=== PATIENT | female | born 1945 | race Caucasian/White ===

== ENCOUNTER 2016-06-06 06:38 | Emergency (ER) | payer MEDICARE, OTHER ==
[2016-06-06] MEDS ORDERED: Acetaminophen/HYDROcodone 325-5 MG Tab PO ONE (07:19)
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
[2016-06-06 08:38] VITALS: BP 156/54
--- NOTE | 2016-06-08 08:33 | CR ---
Chest: Two views of the chest were obtained. Comparison: Previous chest x-ray of 10/12/12. Heart size and mediastinum are within normal limits. Lungs are clear. Bony structures are unremarkable for the patient's age. Impression: 1. Nothing acute is seen on two-view chest x-ray. Diagnostic code #1
== END 2016-06-06 08:32 | disposition home or self-care (01) ==
LOC: JD.ED 06:38
DX: S20.20XA Contusion of thorax, unspecified, initial encounter (principal); I10 Essential (primary) hypertension; J44.9 Chronic obstructive pulmonary disease, unspecified; E11.9 Type 2 diabetes mellitus without complications; E66.9 Obesity, unspecified; Z85.3 Personal history of malignant neoplasm of breast; Z98.49 Cataract extraction status, unspecified eye; Z90.49 Acquired absence of other specified parts of digestive tract; Z90.11 Acquired absence of right breast and nipple; F17.210 Nicotine dependence, cigarettes, uncomplicated; Z68.30 Body mass index [BMI] 30.0-30.9, adult; Z79.84 Long term (current) use of oral hypoglycemic drugs; Z79.899 Other long term (current) drug therapy; Z88.0 Allergy status to penicillin; Z88.2 Allergy status to sulfonamides; Z88.1 Allergy status to other antibiotic agents; Z79.82 Long term (current) use of aspirin; W17.89XA Other fall from one level to another, initial encounter
CPT/HCPCS: 71020; 99283; A9270; 99284

== ENCOUNTER 2016-10-21 12:15 | Observation (INO) | payer MEDICARE, OTHER ==
[2016-10-21] MEDS ORDERED: LORazepam 2 MG/ML MDV IVPUSH PRN (13:11)
[2016-10-21] MEDS ORDERED: hydrALAZINE 20 MG/ML SDV IVPUSH PRN (13:11)
[2016-10-21] MEDS ORDERED: Ondansetron 4 MG/2 ML SDV IV PRN (13:11)
[2016-10-21] MEDS ORDERED: Promethazine 12.5 MG in Sodium Chloride 0.9% 50 ML IV PRN (13:11)
[2016-10-21] MEDS ORDERED: Albuterol/Ipratropium 3.0-0.5 MG/3 ML Neb Soln NEB PRN (13:11)
[2016-10-21] MEDS ORDERED: LORazepam 2 MG/ML MDV IV PRN (13:11)
[2016-10-21] MEDS ORDERED: HYDROmorphone 0.5 MG/0.5 ML Syringe IVPUSH PRN (13:11)
[2016-10-21] MEDS ORDERED: Acetaminophen/HYDROcodone 325-5 MG Tab PO PRN (13:11)
[2016-10-21] MEDS ORDERED: Metoprolol Tartrate 5 MG/5 ML SDV IVPUSH PRN (13:11)
[2016-10-21] MEDS ORDERED: Acetaminophen 325 MG Tab PO PRN (13:11)
--- NOTE | 2016-10-21 13:11 | PCM.HP ---
H&P History of Present Illness - General Date of Service: 10/21/16 Admit Problem/Dx: Hyperglycemia with DM2 Source of Information: Patient, Family, Manager Registration, Old Records, Provider, RN Notes Reviewed, Significant Other History Limitations: Reports: No Limitations - History of Present Illness Initial Comments - Free Text/Narative: This is a 70 yo elderly white female with past medial hx/o Cataract, Glaucoma, HTN, COPD, Hx/o Renal Stones, DM2, and Obesity with BMI 30+ who comes in as direct admit from the clinic due to hyperlycemia. She was initially seen at her PCP's office this morning and was found to have a BS level of 396. Her symptom is associated with diarrhea. Per patient, she woke up this morning with a BS level of 469. She immediately took 2 tabs of 1,000 mg by mouth of Metformin to improve her level before she went and got seen at [facility]. Patient has been having some issues controlling with her sugar. She has been on metformin 2000 mg by mouth twice a day daily for over 2 years now. She reports diarrhea 6-8 times a day while on metformin. Her PCP felt diarrhea was not related to Metformin. Patient took upon herself to stop taking Metformin on her own. Six weeks ago, she saw Dr. Wei and at that time patient she was continued on Januvia and Glipizide but Metformin. She was started on Invokana 3 weeks ago. However she felt this new drug was causing her sugar to up. According to patient her last A1C was 6.6 (past 2-3 months). Her initial workup in the clinic shows a CBC remarkable for WBCs of 12.9 and neutrophil absolute count of 10.1. Her chemistry is remarkable for glucose of 396, BUN of 33, creatinine of 1.90, chloride of 94, CO2 31, and AST of 13. Patient is being admitted for medical management of hyperglycemia associated with DMS. She is full code. - Related Data Allergies/Adverse Reactions: Allergies Allergy/AdvReac Type Severity Reaction Status Date / Time Penicillins Allergy Hives Verified 06/06/16 06:52 brimonidine [From Alphagan P] AdvReac Vision loss Verified 10/21/16 13:40 sulfamethoxazole AdvReac Headache Verified 10/21/16 13:40 [From Septra] trimethoprim [From Novra] AdvReac Headache Verified 10/21/16 13:40 Home Medications: Home Meds Aspirin [Halfprin] 81 mg PO BID 06/06/16 [History] Brinzolamide [Azopt] 1 drop EYERT BID 06/06/16 [History] Calcium Carbonate/Vitamin D3 [Calcium 500 + Vit D 400] 2 tab PO DAILY 06/06/16 [ History] Cinnamon Bark [Cinnamon] 2,000 mg PO BID 06/06/16 [History] Furosemide 60 mg PO DAILY 06/06/16 [History] Lisinopril 10 mg PO DAILY 06/06/16 [History] [place]-3S/DHA/Epa/Fish Oil/D3 [Fish Oil + D3 Softgel] 1 each PO DAILY 06/06/16 [ History] Simvastatin [Zocor] 20 mg PO DAILY 06/06/16 [History] SitaGLIPtin [Januvia] 100 mg PO DAILY 06/06/16 [History] Timolol Maleate [Timoptic 0.5% Ophth Soln] 1 drop EYERT BID 06/06/16 [History] Travoprost [Travatan Z] 1 drop EYEBOTH BEDTIME 06/06/16 [History] Past Medical History HEENT History: Reports: Cataract, Glaucoma Cardiovascular History: Reports: Hypertension Respiratory History: Reports: COPD Gastrointestinal History: Reports: Chronic Diarrhea Genitourinary History: Reports: Renal Calculus Endocrine/Metabolic History: Reports: Diabetes, Type II, Obesity/BMI 30+ Oncologic (Cancer) History: Reports: Breast (right, 2006, S/P mastectomy & CTx) Other Oncologic History: 2006 - Past Surgical History HEENT Surgical History: Reports: Cataract Surgery, Oral Surgery Social & Family History - Family History Family Medical History: Noncontributory - Tobacco Use Smoking Status *Q: Current Every Day Smoker Years of Tobacco use: 54 Packs/Tins Daily: 1.5 Used Tobacco, but Quit: No Second Hand Smoke Exposure: Yes - Caffeine Use Caffeine Use: Reports: Coffee - Recreational Drug Use Recreational Drug Use: No - Living Situation & Occupation Living situation: Reports: , with Spouse Occupation: Retired H&P Review of Systems - Review of Systems: Review Of Systems: See Below General: Denies: Fever, Chills, Malaise, Weakness, Fatigue, Night Sweats HEENT: Reports: No Symptoms Pulmonary: Denies: Shortness of Breath Cardiovascular: Denies: Palpitations, Dyspnea on Exertion Gastrointestinal: Reports: Diarrhea. Denies: Abdominal Pain, Nausea, Vomiting Genitourinary: Reports: Frequency. Denies: Burning, Pain, Incontinence Musculoskeletal: Reports: No Symptoms Skin: Denies: Cyanosis, Rash, Erythema Psychiatric: Denies: Depression, Agitation, Hallucinations, Suicidal Ideation, Homicidal Ideation Neurological: Denies: Confusion, Difficulty Walking, Weakness, Gait Disturbance Hematologic/Lymphatic: Reports: No Symptoms Immunologic: Reports: No Symptoms Exam - Exam Exam: See Below - Vital Signs Vital Signs: Last Vital Signs Temp 36.5 C 10/21/16 12:27 Pulse 86 10/21/16 12:27 Resp 14 10/21/16 12:27 BP 129/57 L 10/21/16 12:27 Pulse Ox 96 10/21/16 12:27 Weight: 83.597 kg - Exam General: Alert, Oriented, Cooperative, Mild Distress, Moderate Distress HEENT: Conjunctiva Clear, EACs Clear, EOMI, Hearing Intact, Mucosa Moist & Roundup , Nares Patent, Normal Nasal Septum, Posterior Pharynx Clear, Pupils Equal, Pupils Reactive, TMs Clear Neck: Supple, Trachea Midline, +2 Carotid Pulse wo Bruit, Full Range of Motion. No: JVD Lungs: Clear to Auscultation, Normal Respiratory Effort Cardiovascular: Regular Rate, Regular Rhythm GI/Abdominal Exam: Normal Bowel Sounds, Soft, Non-Tender, No Organomegaly, No Distention, No Abnormal Bruit, No Mass, Pelvis Stable (Female) Exam: Deferred Rectal (Female) Exam: Deferred Back Exam: Normal Inspection, Decreased Range of Motion Extremities: Normal Inspection, Normal Range of Motion, Non-Tender, No Pedal Edema, Normal Capillary Refill Peripheral Pulses: 2+: Posterior Tibial (L), Posterior Tibial (R), Dorsalis Pedis (L), Dorsalis Pedis (R) Skin: Warm, Dry, Intact Neuro Extensive - Mental Status: Oriented x3, Normal Cognition, Memory Intact Neuro Extensive - Motor, Sensory, Reflexes: CN II-XII Intact, Normal Gait Psychiatric: Alert, Normal Affect, Normal Mood *Q Meaningful Use (ADM) - VTE *Q VTE Criteria *Q: - Stroke *Q Stroke Criteria *Q: - AMI *Q AMI Criteria *Q: Problem List Initiated/Reviewed/Updated: Yes Orders Last 24hrs: Active Orders 24 hr Category Date Time Status ABG [BLOOD GAS ARTERIAL] [BG] Urgent Lab 10/21/16 12:41 Ordered UA W/MICROSCOPIC [URIN] Routine Lab 10/21/16 12:41 Uncollected Assessment/Plan Comment:: Assessment/Plan: Acute: Hyperglycemia with DM2 - She is on Januvia, Glipizide and Invokana - Unsure if she is compliant - Recent A1c per patient is 6.6 (1-2 diabetic medications should be enough to control her sugar) - Will check A1C, Accu-check QID, ISS - Glipizide 5 mg po BID and +/- Invokana - She thinks SGLT2 is causing her sugar to go up Dehydration - Patient takes Lasix - She is also on Invokana (also a diuretic pill) - Will hydrate her Metformin Induced Diarrhea - D/c Metformin - No unusual diet or drink, no recent abx use - Defer C. diff test - Fecal Lactoferrin and WBC to r/o infectious cause - IV Hydration and Monitor E-lytes Chronic: Impaired Vision HTN COPD Obesity Plan: Admit to OBS Resume Home Meds Routine AM Labs Diabetic Education Goal: to keep her on 2 oral anti-hypoglycemic drugs only SW/CM for d/c planning Code status: 1 Possible d/c in 1-2 days
[2016-10-21] MEDS ORDERED: Bisacodyl 5 MG Tab PO PRN (13:24)
[2016-10-21] MEDS ORDERED: Sodium Chloride 0.9% 500 ML IV ONE (13:39)
[2016-10-21] MEDS ORDERED: Nicotine 21 MG/24 Hr Patch TRDERM ONE (14:13)
[2016-10-21] MEDS: Nicotine 21 MG/24 Hr Patch TRDERM SCH (15:01)
[2016-10-21] MEDS: Sodium Chloride 0.9% 1,000 ML IV SCH ×2 (15:06→18:28)
[2016-10-21] MEDS ORDERED: 50% Dextrose in Water 50 ML Syringe IVPUSH PRN (15:09)
[2016-10-21] MEDS: Insulin Aspart 100 Units/ML 3 ML Pen SUBCUT SCH ×2 (17:47→21:11)
[2016-10-21] MEDS: Simvastatin 20 MG Tab*PT OWN MED PO SCH (21:07)
[2016-10-21] MEDS: Aspirin 81 MG Tab.EC PO SCH (21:07)
[2016-10-21] MEDS: glipiZIDE 5 MG Tab.ER PO SCH (21:07)
[2016-10-21] MEDS: Famotidine 20 MG Tab PO SCH (21:07)
[2016-10-21] MEDS: Temazepam 15 MG Cap PO PRN (22:15)
[2016-10-22] MEDS: Insulin Aspart 100 Units/ML 3 ML Pen SUBCUT SCH ×4 (06:03→22:21)
[2016-10-22] MEDS: glipiZIDE 5 MG Tab.ER PO SCH ×2 (10:32→20:48)
[2016-10-22] MEDS: Famotidine 20 MG Tab PO SCH (10:32)
[2016-10-22] MEDS: Sodium Chloride 0.9% 1,000 ML IV SCH ×2 (11:55→20:51)
[2016-10-22] MEDS ORDERED: Magnesium Sulfate/Water 2 GM in Premix Bag 1 BAG IV ONE (12:59)
--- NOTE | 2016-10-22 12:59 | PCM.PN ---
- General Info Date of Service: 10/22/16 Functional Status: Reports: Tolerating Diet, Ambulating, Urinating - Review of Systems General: Reports: No Symptoms HEENT: Reports: No Symptoms Pulmonary: Reports: No Symptoms Cardiovascular: Reports: No Symptoms Gastrointestinal: Reports: Diarrhea Genitourinary: Reports: No Symptoms Musculoskeletal: Reports: No Symptoms Skin: Reports: No Symptoms Neurological: Reports: No Symptoms - Patient Data Vitals - Most Recent: Last Vital Signs Temp 36.7 C 10/22/16 12:27 Pulse 94 10/22/16 12:27 Resp 16 10/22/16 12:27 BP 150/72 H 10/22/16 12:27 Pulse Ox 100 10/22/16 12:27 Weight - Most Recent: 84.958 kg I&O - Last 24 Hours: Intake & Output 10/21/16 10/22/16 10/22/16 22:59 06:59 14:59 Intake Total 1023 2112 120 Output Total 500 Balance 1023 1612 120 Lab Results Last 24 Hours: Laboratory Results - last 24 hr 10/21/16 10/21/16 10/21/16 Range/Units 12:41 14:45 14:45 WBC (3.98-10.04) K/mm3 RBC (3.98-5.22) M/mm3 Hgb (11.2-15.7) gm/L Hct (34.1-44.9) % MCV (79.4-94.8) fl MCH (25.6-32.2) pg MCHC (32.2-35.5) g/dl RDW Std Deviation (36.4-46.3) fL Plt Count (182-369) K/mm3 MPV (9.4-12.3) fl Puncture Site Lt radial ABG pH 7.42 (7.35-7.45) ABG pCO2 43.8 (35.0-45.0) mmHg ABG pO2 65.0 L (80.0-100.0) mmHg ABG HCO3 27.8 H (22.0-26.0) meq/L ABG O2 Saturation 94.6 L (96.0-97.0) % ABG Base Excess 3.3 H (-2-2.0) Von Test Positive A-a Gradient 14 mmHg O2 Delivery Device Room air Oxygen Flow Rate 0.0 FiO2 0.00 L (21.00-100.00) % Sodium (136-145) mEq/L Potassium (3.5-5.1) mEq/L Chloride (98-107) mEq/L Carbon Dioxide (21-32) mEq/L Anion Gap (5-15) BUN (7-18) mg/dL Creatinine (0.55-1.02) mg/dL Est Cr Clr Drug Dosing mL/min Estimated GFR (MDRD) (>60) mL/min BUN/Creatinine Ratio (14-18) Glucose (80-115) mg/dL POC Glucose (80-115) mg/dL Hemoglobin A1c 8.30 H (4.50-6.20) % Calcium (8.5-10.1) mg/dL Magnesium (1.8-2.4) mg/dl C-Reactive Protein 0.2 (<1.0) mg/dL Free T4 1.29 (0.76-1.46) ng/dL TSH 3rd Generation 0.905 (0.358-3.74) uIU/mL Urine Color (Yellow) Urine Appearance (Clear) Urine pH (5.0-8.0) Ur Specific [place] (1.005-1.030) Urine Protein (Negative) Urine Glucose (UA) (Negative) Urine Ketones (Negative) Urine Occult Blood (Negative) Urine Nitrite (Negative) Urine Bilirubin (Negative) Urine Urobilinogen (0.2-1.0) Ur Leukocyte Esterase (Negative) Urine RBC (0-5) /hpf Urine WBC (0-5) /hpf Urine WBC Clumps (NOT SEEN) /hpf Ur Epithelial Cells (0-5) /hpf Urine Bacteria (FEW) /hpf Urine Mucus (FEW) /hpf Ur Random Creatinine (30.0-125.0) mg/dL Ur Random Microalbumin (1.3-20.0) mg/L Microalb/Creat Ratio (0-30) mg/g 10/21/16 10/21/16 10/21/16 Range/Units 16:45 19:00 19:00 WBC (3.98-10.04) K/mm3 RBC (3.98-5.22) M/mm3 Hgb (11.2-15.7) gm/L Hct (34.1-44.9) % MCV (79.4-94.8) fl MCH (25.6-32.2) pg MCHC (32.2-35.5) g/dl RDW Std Deviation (36.4-46.3) fL Plt Count (182-369) K/mm3 MPV (9.4-12.3) fl Puncture Site ABG pH (7.35-7.45) ABG pCO2 (35.0-45.0) mmHg ABG pO2 (80.0-100.0) mmHg ABG HCO3 (22.0-26.0) meq/L ABG O2 Saturation (96.0-97.0) % ABG Base Excess (-2-2.0) Von Test A-a Gradient mmHg O2 Delivery Device Oxygen Flow Rate FiO2 (21.00-100.00) % Sodium (136-145) mEq/L Potassium (3.5-5.1) mEq/L Chloride (98-107) mEq/L Carbon Dioxide (21-32) mEq/L Anion Gap (5-15) BUN (7-18) mg/dL Creatinine (0.55-1.02) mg/dL Est Cr Clr Drug Dosing mL/min Estimated GFR (MDRD) (>60) mL/min BUN/Creatinine Ratio (14-18) Glucose (80-115) mg/dL POC Glucose 347 H (80-115) mg/dL Hemoglobin A1c (4.50-6.20) % Calcium (8.5-10.1) mg/dL Magnesium (1.8-2.4) mg/dl C-Reactive Protein (<1.0) mg/dL Free T4 (0.76-1.46) ng/dL TSH 3rd Generation (0.358-3.74) uIU/mL Urine Color Yellow (Yellow) Urine Appearance Clear (Clear) Urine pH 5.5 (5.0-8.0) Ur Specific [place] 1.015 (1.005-1.030) Urine Protein Negative (Negative) Urine Glucose (UA) 3+ H (Negative) Urine Ketones Negative (Negative) Urine Occult Blood Negative (Negative) Urine Nitrite Negative (Negative) Urine Bilirubin Negative (Negative) Urine Urobilinogen 0.2 (0.2-1.0) Ur Leukocyte Esterase Trace H (Negative) Urine RBC 0-5 (0-5) /hpf Urine WBC 5-10 H (0-5) /hpf Urine WBC Clumps Rare (NOT SEEN) /hpf Ur Epithelial Cells 0-5 (0-5) /hpf Urine Bacteria Few (FEW) /hpf Urine Mucus Moderate H (FEW) /hpf Ur Random Creatinine 69.1 (30.0-125.0) mg/dL Ur Random Microalbumin 29.5 H (1.3-20.0) mg/L Microalb/Creat Ratio 42.6 H (0-30) mg/g 10/21/16 10/22/16 10/22/16 Range/Units 21:06 06:01 06:30 WBC 8.76 (3.98-10.04) K/mm3 RBC 3.33 L (3.98-5.22) M/mm3 Hgb 10.8 L (11.2-15.7) gm/L Hct 31.8 L (34.1-44.9) % MCV 95.5 H (79.4-94.8) fl MCH 32.4 H (25.6-32.2) pg MCHC 34.0 (32.2-35.5) g/dl RDW Std Deviation 44.4 (36.4-46.3) fL Plt Count 266 (182-369) K/mm3 MPV 10.5 (9.4-12.3) fl Puncture Site ABG pH (7.35-7.45) ABG pCO2 (35.0-45.0) mmHg ABG pO2 (80.0-100.0) mmHg ABG HCO3 (22.0-26.0) meq/L ABG O2 Saturation (96.0-97.0) % ABG Base Excess (-2-2.0) Von Test A-a Gradient mmHg O2 Delivery Device Oxygen Flow Rate FiO2 (21.00-100.00) % Sodium (136-145) mEq/L Potassium (3.5-5.1) mEq/L Chloride (98-107) mEq/L Carbon Dioxide (21-32) mEq/L Anion Gap (5-15) BUN (7-18) mg/dL Creatinine (0.55-1.02) mg/dL Est Cr Clr Drug Dosing mL/min Estimated GFR (MDRD) (>60) mL/min BUN/Creatinine Ratio (14-18) Glucose (80-115) mg/dL POC Glucose 176 H 166 H (80-115) mg/dL Hemoglobin A1c (4.50-6.20) % Calcium (8.5-10.1) mg/dL Magnesium (1.8-2.4) mg/dl C-Reactive Protein (<1.0) mg/dL Free T4 (0.76-1.46) ng/dL TSH 3rd Generation (0.358-3.74) uIU/mL Urine Color (Yellow) Urine Appearance (Clear) Urine pH (5.0-8.0) Ur Specific [place] (1.005-1.030) Urine Protein (Negative) Urine Glucose (UA) (Negative) Urine Ketones (Negative) Urine Occult Blood (Negative) Urine Nitrite (Negative) Urine Bilirubin (Negative) Urine Urobilinogen (0.2-1.0) Ur Leukocyte Esterase (Negative) Urine RBC (0-5) /hpf Urine WBC (0-5) /hpf Urine WBC Clumps (NOT SEEN) /hpf Ur Epithelial Cells (0-5) /hpf Urine Bacteria (FEW) /hpf Urine Mucus (FEW) /hpf Ur Random Creatinine (30.0-125.0) mg/dL Ur Random Microalbumin (1.3-20.0) mg/L Microalb/Creat Ratio (0-30) mg/g 10/22/16 10/22/16 Range/Units 06:30 11:10 WBC (3.98-10.04) K/mm3 RBC (3.98-5.22) M/mm3 Hgb (11.2-15.7) gm/L Hct (34.1-44.9) % MCV (79.4-94.8) fl MCH (25.6-32.2) pg MCHC (32.2-35.5) g/dl RDW Std Deviation (36.4-46.3) fL Plt Count (182-369) K/mm3 MPV (9.4-12.3) fl Puncture Site ABG pH (7.35-7.45) ABG pCO2 (35.0-45.0) mmHg ABG pO2 (80.0-100.0) mmHg ABG HCO3 (22.0-26.0) meq/L ABG O2 Saturation (96.0-97.0) % ABG Base Excess (-2-2.0) Von Test A-a Gradient mmHg O2 Delivery Device Oxygen Flow Rate FiO2 (21.00-100.00) % Sodium 139 (136-145) mEq/L Potassium 3.0 L (3.5-5.1) mEq/L Chloride 105 (98-107) mEq/L Carbon Dioxide 27 (21-32) mEq/L Anion Gap 10.0 (5-15) BUN 29 H (7-18) mg/dL Creatinine 1.7 H (0.55-1.02) mg/dL Est Cr Clr Drug Dosing 24.70 mL/min Estimated GFR (MDRD) 30 (>60) mL/min BUN/Creatinine Ratio 17.1 (14-18) Glucose 167 H (80-115) mg/dL POC Glucose 304 H (80-115) mg/dL Hemoglobin A1c (4.50-6.20) % Calcium 8.7 (8.5-10.1) mg/dL Magnesium 1.6 L (1.8-2.4) mg/dl C-Reactive Protein (<1.0) mg/dL Free T4 (0.76-1.46) ng/dL TSH 3rd Generation (0.358-3.74) uIU/mL Urine Color (Yellow) Urine Appearance (Clear) Urine pH (5.0-8.0) Ur Specific [place] (1.005-1.030) Urine Protein (Negative) Urine Glucose (UA) (Negative) Urine Ketones (Negative) Urine Occult Blood (Negative) Urine Nitrite (Negative) Urine Bilirubin (Negative) Urine Urobilinogen (0.2-1.0) Ur Leukocyte Esterase (Negative) Urine RBC (0-5) /hpf Urine WBC (0-5) /hpf Urine WBC Clumps (NOT SEEN) /hpf Ur Epithelial Cells (0-5) /hpf Urine Bacteria (FEW) /hpf Urine Mucus (FEW) /hpf Ur Random Creatinine (30.0-125.0) mg/dL Ur Random Microalbumin (1.3-20.0) mg/L Microalb/Creat Ratio (0-30) mg/g Isma Results Last 24 Hours: Microbiology 10/21/16 13:38 Stool for WBCs - Final Stool / Feces NO WBC SEEN Med Orders - Current: Current Medications Acetaminophen (Tylenol) 650 mg PO Q4H PRN PRN Reason: Pain (Mild 1-3)/fever Hydrocodone Bitart/Acetaminophen ([place] 325-5 Mg) 1 tab PO Q4H PRN PRN Reason: Pain (moderate 4-6) Albuterol/Ipratropium (Duoneb 3.0-0.5 Mg/3 Ml) 3 ml NEB Q4H PRN PRN Reason: Shortness Of Breath/wheezing Bisacodyl (Dulcolax) 5 mg PO DAILY PRN PRN Reason: Constipation Dextrose/Water (Dextrose 50% In Water) 50 ml IVPUSH ASDIRECTED PRN PRN Reason: Hypoglycemia Famotidine (Pepcid) 20 mg PO DAILY [facility] Glipizide (Glucotrol Xl) 5 mg PO BID [facility] Last Admin: 10/22/16 10:32 Dose: 5 mg Hydralazine HCl (Apresoline) 20 mg IVPUSH Q4H PRN PRN Reason: Hypertension Hydromorphone HCl (Dilaudid) 0.25 mg IVPUSH Q2H PRN PRN Reason: Pain (severe 7-10) Promethazine HCl 12.5 mg/ (Sodium Chloride) 50.5 mls @ 100 mls/hr IV Q6H PRN PRN Reason: Nausea/Vomiting Sodium Chloride (Normal Saline) 1,000 mls @ 125 mls/hr IV ASDIRECTED [facility] Last Admin: 10/22/16 11:55 Dose: 125 mls/hr Insulin Aspart (Novolog) 0 unit SUBCUT QIDACANDBED [facility] PRN Reason: Protocol Last Admin: 10/22/16 11:52 Dose: 4 units Lorazepam (Ativan) 2 mg IVPUSH Q4H PRN PRN Reason: Seizures Lorazepam (Ativan) 1 mg IV Q6H PRN PRN Reason: Anxiety Metoprolol Tartrate (Lopressor) 5 mg IVPUSH Q4H PRN PRN Reason: Tachycardia Miscellaneous Information (Remove Patch) 0 ea TRDERM Q24H [facility] Nicotine (Habitrol) 21 mg TRDERM Q24H [facility] Last Admin: 10/21/16 15:01 Dose: 21 mg (Travoprost [ Travatan Z] 1 Drop)* Pt Own Med* 1 drop EYEBOTH BEDTIME [facility] Last Admin: 10/21/16 21:08 Dose: 1 drop Ondansetron HCl (Zofran) 4 mg IV Q6H PRN PRN Reason: Nausea/Vomiting (Brinzolamide 1% Opthalmic)*Pt Own Med* 0 each EYERT BID [facility] Last Admin: 10/22/16 10:34 Dose: 1 each (Timolol Maleate 0. (25% )*Pt Own Supply*) 0 each EYERT BID [facility] Last Admin: 10/22/16 10:35 Dose: 1 each Aspirin 81 Mg Tab.Ec 0 each PO BID [facility] Last Admin: 10/22/16 10:35 Dose: 81 each Simvastatin (Zocor) 20 mg PO BEDTIME [facility] Last Admin: 10/21/16 21:07 Dose: 20 mg Temazepam (Restoril) 15 mg PO BEDTIME PRN PRN Reason: Sleep Last Admin: 10/21/16 22:15 Dose: 15 mg Discontinued Medications Aspirin (Halfprin) 81 mg PO BID [facility] Last Admin: 10/21/16 21:07 Dose: 81 mg Famotidine (Pepcid) 20 mg PO BID [facility] Last Admin: 10/22/16 10:32 Dose: 20 mg Sodium Chloride (Normal Saline) 500 mls @ 999 mls/hr IV .BOLUS ONE Stop: 10/21/16 14:09 Last Admin: 10/21/16 14:33 Dose: 999 mls/hr Nicotine (Habitrol) 21 mg TRDERM ONETIME ONE Stop: 10/21/16 14:14 Last Admin: 10/21/16 16:50 Dose: Not Given (Brinzolamide 1% Opthalmic)*Pt Own Med* 1 drop EYERT BID [facility] Last Admin: 10/21/16 21:09 Dose: 1 drop Non-Formulary Medication ([place]-3s/Dha/Epa/Fish Oil/D3 [Fish Oil-Vit D3 Softgel] ) 1 each PO DAILY [facility] (Timolol Maleate 0. (25% )*Pt Own Supply*) 1 drop EYERT BID [facility] Last Admin: 10/21/16 21:08 Dose: 1 drop - Exam Quality Assessment: DVT Prophylaxis General: Alert, Oriented, Cooperative, No Acute Distress HEENT: Pupils Equal, Pupils Reactive, EOMI Neck: Supple, Trachea Midline Lungs: Normal Respiratory Effort Cardiovascular: Regular Rate, Regular Rhythm GI/Abdominal Exam: Normal Bowel Sounds, Soft, Non-Tender, No Organomegaly, No Distention (Female) Exam: Deferred Back Exam: Normal Inspection Extremities: Normal Inspection, No Pedal Edema Skin: Warm Neurological: No New Focal Deficit Psy/Mental Status: Alert, Normal Affect, Normal Mood - Problem List & Annotations (1) COPD (chronic obstructive pulmonary disease) SNOMED Code(s): 31370872 Code(s): J44.9 - CHRONIC OBSTRUCTIVE PULMONARY DISEASE, UNSPECIFIED Status : Acute Current Visit: Yes (2) Hypertension SNOMED Code(s): 81208615 Code(s): I10 - ESSENTIAL (PRIMARY) HYPERTENSION Status: Acute Current Visit: Yes (3) Hyperlipidemia SNOMED Code(s): 58350677 Code(s): E78.5 - HYPERLIPIDEMIA, UNSPECIFIED Status: Acute Current Visit : Yes (4) Hyperglycemia due to type 2 diabetes mellitus SNOMED Code(s): 816945381417468, 093490735825657 Code(s): E11.65 - TYPE 2 DIABETES MELLITUS WITH HYPERGLYCEMIA Status: Acute Current Visit: Yes - Problem List Review Problem List Initiated/Reviewed/Updated: Yes - My Orders Last 24 Hours: My Active Orders 10/22/16 12:59 Magnesium Sulfate/Water [Magnesium Sulfate 2 GM in Water 50 ML] 2 gm Premix Bag 1 bag IV ONETIME 10/22/16 21:00 Potassium Chloride 40 meq PO BID - Plan Plan:: Assessment/Plan: Acute: Hyperglycemia with DM2 - She is on Januvia, Glipizide and Invokana - Unsure if she is compliant - Recent A1c per patient is 6.6 (1-2 diabetic medications should be enough to control her sugar) - Will check A1C, Accu-check QID, ISS - Glipizide 5 mg po BID and +/- Invokana - She thinks SGLT2 is causing her sugar to go up Dehydration - Patient takes Lasix - She is also on Invokana (also a diuretic pill) - Will hydrate her Metformin Induced Diarrhea - D/c Metformin - No unusual diet or drink, no recent abx use - Defer C. diff test - Fecal Lactoferrin and WBC to r/o infectious cause - IV Hydration and Monitor E-lytes Chronic: Impaired Vision HTN COPD Obesity Plan: Imodium Resume Home Meds Routine AM Labs Diabetic Education Goal: to keep her on 2 oral anti-hypoglycemic drugs only SW/CM for d/c planning Code status: 1 Possible d/c in 1-2 days
[2016-10-22] MEDS: Potassium Chloride 10% 20 MEQ/15 ML Soln 30 ML UD Cup PO SCH ×2 (13:51→20:48)
[2016-10-22] MEDS: Nicotine 21 MG/24 Hr Patch TRDERM SCH (13:51)
[2016-10-22] MEDS ORDERED: Loperamide 2 MG Cap PO ONE (14:40)
[2016-10-22] MEDS: Aspirin 81 MG Tab.EC PO SCH (14:53)
[2016-10-22] MEDS: Temazepam 15 MG Cap PO PRN (20:48)
[2016-10-22] MEDS: Simvastatin 20 MG Tab*PT OWN MED PO SCH (20:49)
[2016-10-23] MEDS: Insulin Aspart 100 Units/ML 3 ML Pen SUBCUT SCH ×2 (06:33→11:56)
[2016-10-23] MEDS: glipiZIDE 5 MG Tab.ER PO SCH (08:05)
[2016-10-23] MEDS: Potassium Chloride 10% 20 MEQ/15 ML Soln 30 ML UD Cup PO SCH (08:05)
[2016-10-23] MEDS ORDERED: Famotidine 20 MG Tab PO SCH (09:00)
[2016-10-23 12:50] VITALS: BP 153/65
--- NOTE | 2016-10-24 17:06 | PCM.DCSUM1 ---
Discharge Summary - Hospital Course Free Text/Narrative:: 70 yo female with past medial hx/o Cataract, Glaucoma, HTN, COPD, Hx/o Renal Stones, DM2, and Obesity with BMI 30+ who comes in as direct admit from the clinic due to hyperlycemia. She was initially seen at her PCP's office this morning and was found to have a BS level of 396. Her symptom is associated with diarrhea. Per patient, she woke up this morning with a BS level of 469. She immediately took 2 tabs of 1,000 mg by mouth of Metformin to improve her level before she went and got seen at [facility]. Patient has been having some issues controlling with her sugar. She has been on metformin 2000 mg by mouth twice a day daily for over 2 years now. She reports diarrhea 6-8 times a day while on metformin. Her PCP felt diarrhea was not related to Metformin. Patient took upon herself to stop taking Metformin on her own. Six weeks ago, she saw Dr. Wei and at that time patient she was continued on Januvia and Glipizide but Metformin. She was started on Invokana 3 weeks ago. However she felt this new drug was causing her sugar to up. According to patient her last A1C was 6.6 (past 2-3 months). Patient is being admitted for medical management of hyperglycemia associated with DMS. 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 - Discharge Data Discharge Date: 10/23/16 Discharge Disposition: Home, Self-Care 01 Condition: Good - Discharge Diagnosis/Problem(s) (1) COPD (chronic obstructive pulmonary disease) SNOMED Code(s): 02400797 ICD Code: J44.9 - CHRONIC OBSTRUCTIVE PULMONARY DISEASE, UNSPECIFIED Status : Acute (2) Hypertension SNOMED Code(s): 94350971 ICD Code: I10 - ESSENTIAL (PRIMARY) HYPERTENSION Status: Acute (3) Hyperlipidemia SNOMED Code(s): 90052476 ICD Code: E78.5 - HYPERLIPIDEMIA, UNSPECIFIED Status: Acute (4) Hyperglycemia due to type 2 diabetes mellitus SNOMED Code(s): 153542130206105, 922856693097211 ICD Code: E11.65 - TYPE 2 DIABETES MELLITUS WITH HYPERGLYCEMIA Status: Acute - Patient Summary/Data Consults: Consultations 10/21/16 13:34 Consult to Case Management [CONS] Routine Consult to Diabetic Nurse Specialist [CONS] Routine Consult to A Operator [CONS] Routine Consult to Video Editor [CONS] Routine Consult to Spiritual Care [CONS] Routine - Patient Instructions Diet: Usual Diet as Tolerated Activity: As Tolerated Driving: May Drive Today Showering/Bathing: May Shower Notify Provider of: Nausea and/or Vomiting Other/Special Instructions: pt refused to comment on any immunization questions - Discharge Plan Prescriptions/Med Rec: glipiZIDE [Glucotrol XL] 5 mg PO BID #60 tab.er Home Medications: Home Meds Aspirin [Halfprin] 81 mg PO BID 06/06/16 [History] Brinzolamide [Azopt] 1 drop EYERT BID 06/06/16 [History] Calcium Carbonate/Vitamin D3 [Calcium 500 + Vit D 400] 2 tab PO DAILY 06/06/16 [ History] Cinnamon Bark [Cinnamon] 2,000 mg PO BID 06/06/16 [History] Furosemide 60 mg PO DAILY 06/06/16 [History] Lisinopril 10 mg PO DAILY 06/06/16 [History] [place]-3S/DHA/Epa/Fish Oil/D3 [Fish Oil-Vit D3 Softgel] 1 each PO DAILY 06/06/16 [History] Simvastatin [Zocor] 20 mg PO DAILY 06/06/16 [History] SitaGLIPtin [Januvia] 100 mg PO DAILY 06/06/16 [History] Timolol Maleate [Timoptic 0.5% Ophth Soln] 1 drop EYERT BID 06/06/16 [History] Travoprost [Travatan Z] 1 drop EYEBOTH BEDTIME 06/06/16 [History] Albuterol/Ipratropium [DuoNeb 3.0-0.5 MG/3 ML] 2.5 mg INH QID PRN 10/21/16 [ History] glipiZIDE [Glucotrol XL] 5 mg PO BID #60 tab.er 10/23/16 [Rx] Patient Handouts: Smoking Cessation, Tips for Success, Ctad-qa-Aqms, Hyperglycemia, Fgbh-bz-Nnst, Blood Glucose Monitoring, Adult Referrals: Lei West MD [Primary Care Provider] - (Please see Dr. 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 Direct # is [phone] if you need to change time.) - Discharge Summary/Plan Comment DC Time >30 min.: No - General Info Date of Service: 10/21/16 Functional Status: Reports: Pain Controlled, Tolerating Diet, Ambulating, Urinating - Review of Systems General: Reports: No Symptoms HEENT: Reports: No Symptoms Pulmonary: Reports: No Symptoms Cardiovascular: Reports: No Symptoms Gastrointestinal: Reports: No Symptoms Genitourinary: Reports: No Symptoms Musculoskeletal: Reports: No Symptoms Skin: Reports: No Symptoms Neurological: Reports: No Symptoms Psychiatric: Reports: No Symptoms - Patient Data Vitals - Most Recent: Last Vital Signs Temp 36.4 C 10/23/16 12:31 Pulse 78 10/23/16 12:31 Resp 12 10/23/16 12:31 BP 153/65 H 10/23/16 12:31 Pulse Ox 91 L 10/23/16 14:00 Weight - Most Recent: 87.044 kg Med Orders - Current: Current Medications Discontinued Medications Acetaminophen (Tylenol) 650 mg PO Q4H PRN PRN Reason: Pain (Mild 1-3)/fever Hydrocodone Bitart/Acetaminophen ([place] 325-5 Mg) 1 tab PO Q4H PRN PRN Reason: Pain (moderate 4-6) Albuterol/Ipratropium (Duoneb 3.0-0.5 Mg/3 Ml) 3 ml NEB Q4H PRN PRN Reason: Shortness Of Breath/wheezing Aspirin (Halfprin) 81 mg PO BID [facility] Last Admin: 10/22/16 14:53 Dose: Not Given Bisacodyl (Dulcolax) 5 mg PO DAILY PRN PRN Reason: Constipation Dextrose/Water (Dextrose 50% In Water) 50 ml IVPUSH ASDIRECTED PRN PRN Reason: Hypoglycemia Famotidine (Pepcid) 20 mg PO BID [facility] Last Admin: 10/22/16 10:32 Dose: 20 mg Famotidine (Pepcid) 20 mg PO DAILY [facility] Last Admin: 10/23/16 08:05 Dose: 20 mg Glipizide (Glucotrol Xl) 5 mg PO BID [facility] Last Admin: 10/23/16 08:05 Dose: 5 mg Hydralazine HCl (Apresoline) 20 mg IVPUSH Q4H PRN PRN Reason: Hypertension Hydromorphone HCl (Dilaudid) 0.25 mg IVPUSH Q2H PRN PRN Reason: Pain (severe 7-10) Promethazine HCl 12.5 mg/ (Sodium Chloride) 50.5 mls @ 100 mls/hr IV Q6H PRN PRN Reason: Nausea/Vomiting Sodium Chloride (Normal Saline) 1,000 mls @ 125 mls/hr IV ASDIRECTED [facility] Last Admin: 10/22/16 20:51 Dose: 125 mls/hr Sodium Chloride (Normal Saline) 500 mls @ 999 mls/hr IV .BOLUS ONE Stop: 10/21/16 14:09 Last Admin: 10/21/16 14:33 Dose: 999 mls/hr Magnesium Sulfate 2 gm/ Premix 50 mls @ 25 mls/hr IV ONETIME ONE Stop: 10/22/16 14:58 Last Admin: 10/22/16 13:51 Dose: 25 mls/hr Insulin Aspart (Novolog) 0 unit SUBCUT QIDACANDBED [facility] PRN Reason: Protocol Last Admin: 10/23/16 11:56 Dose: 2 units Loperamide HCl (Imodium) 2 mg PO ONETIME ONE Stop: 10/22/16 14:41 Last Admin: 10/22/16 14:52 Dose: 2 mg Lorazepam (Ativan) 2 mg IVPUSH Q4H PRN PRN Reason: Seizures Lorazepam (Ativan) 1 mg IV Q6H PRN PRN Reason: Anxiety Metoprolol Tartrate (Lopressor) 5 mg IVPUSH Q4H PRN PRN Reason: Tachycardia Miscellaneous Information (Remove Patch) 0 ea TRDERM Q24H [facility] Last Admin: 10/22/16 13:58 Dose: 1 ea Nicotine (Habitrol) 21 mg TRDERM Q24H [facility] Last Admin: 10/22/16 13:51 Dose: 21 mg Nicotine (Habitrol) 21 mg TRDERM ONETIME ONE Stop: 10/21/16 14:14 Last Admin: 10/21/16 16:50 Dose: Not Given (Brinzolamide 1% Opthalmic)*Pt Own Med* 1 drop EYERT BID [facility] Last Admin: 10/21/16 21:09 Dose: 1 drop Non-Formulary Medication ([place]-3s/Dha/Epa/Fish Oil/D3 [Fish Oil-Vit D3 Softgel] ) 1 each PO DAILY [facility] (Timolol Maleate 0. (25% )*Pt Own Supply*) 1 drop EYERT BID [facility] Last Admin: 10/21/16 21:08 Dose: 1 drop (Travoprost [ Travatan Z] 1 Drop)* Pt Own Med* 1 drop EYEBOTH BEDTIME [facility] Last Admin: 10/22/16 20:50 Dose: 1 drop Ondansetron HCl (Zofran) 4 mg IV Q6H PRN PRN Reason: Nausea/Vomiting (Brinzolamide 1% Opthalmic)*Pt Own Med* 0 each EYERT BID [facility] Last Admin: 10/23/16 08:09 Dose: 1 each (Timolol Maleate 0. (25% )*Pt Own Supply*) 0 each EYERT BID [facility] Last Admin: 10/23/16 08:09 Dose: 1 each Aspirin 81 Mg Tab.Ec 0 each PO BID [facility] Last Admin: 10/23/16 08:09 Dose: 1 each Potassium Chloride (Potassium Chloride) 40 meq PO BID [facility] Last Admin: 10/23/16 08:05 Dose: 40 meq Simvastatin (Zocor) 20 mg PO BEDTIME [facility] Last Admin: 10/22/16 20:49 Dose: 20 mg Temazepam (Restoril) 15 mg PO BEDTIME PRN PRN Reason: Sleep Last Admin: 10/22/16 20:48 Dose: 15 mg - Exam Quality Assessment: Reports: DVT Prophylaxis General: Reports: Alert, Oriented, Cooperative, No Acute Distress HEENT: Reports: Pupils Equal, Pupils Reactive, EOMI Neck: Reports: Supple, Trachea Midline, No JVD Lungs: Reports: Normal Respiratory Effort Cardiovascular: Reports: Regular Rate, Regular Rhythm GI/Abdominal Exam: Normal Bowel Sounds, Soft, Non-Tender, No Organomegaly, No Distention (Female) Exam: Deferred Rectal (Female) Exam: Deferred Back Exam: Reports: Normal Inspection Skin: Reports: Warm Neurological: Reports: No New Focal Deficit Psy/Mental Status: Reports: Alert, Normal Affect, Normal Mood *Q Meaningful Use (DIS) - VTE *Q VTE Criteria *Q: - Stroke *Q Stroke Criteria *Q: - AMI *Q AMI Criteria *Q:
== END 2016-10-23 14:06 | disposition home or self-care (01) ==
LOC: UNDOADMIN 12:15 → JD.MS 12:15 → INTOOBSV 12:16
PROVIDERS: ADMIT Internal Medicine; ATTEND Internal Medicine
DX: E11.65 Type 2 diabetes mellitus with hyperglycemia (principal); K52.1 Toxic gastroenteritis and colitis; E86.0 Dehydration; T38.3X5A Adverse effect of insulin and oral hypoglycemic [antidiabetic] drugs, initial encounter; J44.9 Chronic obstructive pulmonary disease, unspecified; I10 Essential (primary) hypertension; E78.5 Hyperlipidemia, unspecified; H40.9 Unspecified glaucoma; E66.9 Obesity, unspecified; F17.210 Nicotine dependence, cigarettes, uncomplicated; Z87.442 Personal history of urinary calculi; Z79.82 Long term (current) use of aspirin; Z79.84 Long term (current) use of oral hypoglycemic drugs; Z79.899 Other long term (current) drug therapy; Z88.0 Allergy status to penicillin; Z88.2 Allergy status to sulfonamides; Z88.8 Allergy status to other drugs, medicaments and biological substances; Z85.3 Personal history of malignant neoplasm of breast; Z90.11 Acquired absence of right breast and nipple; Z98.890 Other specified postprocedural states
CPT/HCPCS: 36415; 36600; 80048; 81001; 82043; 82803; 82962; 83036; 83630; 83735; 84439; 84443; 85027; 86140; 89055; A9270; J1815; J7040; 96361; 96365; G0378; G0379; J3475

== ENCOUNTER 2024-03-28 06:05 | Inpatient (IN) | payer MEDICARE, BC ==
[2024-03-28] MEDS ORDERED: Sodium Chloride 0.9% 10 ML Syringe FLUSH PRN (06:08)
[2024-03-28] MEDS: Albuterol/Ipratropium 3.0-0.5 MG/3 ML Neb Soln NEB ONE ×2 (06:11→13:43)
[2024-03-28] MEDS: methylPREDNISolone Sodium Succinate 125 MG/2 ML SDV IVPUSH ONE (06:31)
[2024-03-28 06:33] LABS: BASOPHILS PERCENT AUTO 0.2 % (0.0-1.0); EOSINOPHILS ABSOLUTE AUTO 0.1 K/mm3 (0.0-0.4); EOSINOPHILS PERCENT AUTO 0.7 % (0.0-6.0); HEMATOCRIT 40.8 % (37.0-47.0); HEMOGLOBIN 12.7 gm/dl (12.0-16.0); IMMATURE GRAN ABSOLUTE AUTO 0.08 K/mm3 (0.00-0.05); IMMATURE GRAN PERCENT AUTO 0.6 % (0.0-0.4); LYMPHOCYTES ABSOLUTE AUTO 1.3 K/mm3 (1.0-4.8); LYMPHOCYTES PERCENT AUTO 9.3 % (24.0-44.0); MEAN CORPUSCULAR HEMOGLOBIN 30.2 pg (28.0-32.0); MEAN CORPUSCULAR HGB CONC 31.1 g/dl (32.0-36.0); MEAN CORPUSCULAR VOLUME 96.9 fl (83.0-99.0); MEAN PLATELET VOLUME 9.2 fl (9.4-12.3); MONOCYTES ABSOLUTE AUTO 0.9 K/mm3 (0.0-0.8); MONOCYTES PERCENT AUTO 6.9 % (0.0-8.0); NEUTROPHILS ABSOLUTE AUTO 11.1 K/mm3 (1.8-7.7); NEUTROPHILS PERCENT AUTO 82.3 % (41.0-71.0); PLATELET COUNT,PLT 325 K/mm3 (150-400); RED BLOOD CELL COUNT 4.21 M/mm3 (4.10-5.30); WHITE BLOOD CELL COUNT,WBC 13.51 K/mm3 (3.9-11.3)
[2024-03-28] MEDS ORDERED: Naloxone 0.4 MG/ML SDV IVPUSH PRN (07:05)
[2024-03-28 07:08] LABS: A/G RATIO 0.6 (1-2); ALBUMIN 2.8 g/dl (3.4-5.0); ANION GAP 11.9 (5-15); BILIRUBIN TOTAL 0.6 mg/dL (0.2-1.0); BUN/CREATININE RATIO 14.1 (14-18); CALCIUM 9.1 mg/dL (8.5-10.1); CREATININE 2.7 mg/dL (0.55-1.02); EST CRCL DRUG DOSING (CG) 12.53 mL/min; MAGNESIUM 2.3 mg/dL (1.8-2.4); POTASSIUM,K 3.9 mEq/L (3.5-5.1); PROTEIN TOTAL,TP 7.3 g/dl (6.4-8.2)
[2024-03-28] MEDS: Morphine 4 MG/ML Syringe IVPUSH ONE (07:14)
[2024-03-28] MEDS: Metoprolol Tartrate 5 MG/5 ML SDV IVPUSH ONE (11:03)
[2024-03-28] MEDS: atorvaSTATin 40 MG Tab PO ONE (11:11)
[2024-03-28] MEDS: Nitroglycerin 2% Oint 1 GM UD Packet TOP PRN (12:05)
[2024-03-28] MEDS: LORazepam 2 MG/ML SDV IVPUSH ONE ×2 (13:33→18:06)
[2024-03-28] MEDS: Albuterol/Ipratropium 3.0-0.5 MG/3 ML Neb Soln ONE (16:27)
[2024-03-28] MEDS: Heparin Sodium 5,000 Units/ML Vial IVPUSH ONE (16:34)
[2024-03-28] MEDS: hydrALAZINE 20 MG/ML SDV IVPUSH PRN (16:36)
[2024-03-28] MEDS: Heparin Sodium/D5W 250 ML IV SCH (16:39)
[2024-03-28] MEDS: Clopidogrel 75 MG Tab PO ONE (16:41)
[2024-03-28] MEDS: LORazepam 2 MG/ML SDV ONE (18:05)
[2024-03-28 18:27] LABS: APPEARANCE,URINE CLOUDY (Clear); BILIRUBIN,URINE NEGATIVE (Negative); COLOR,URINE YELLOW (Yellow); GLUCOSE,URINE 2+ (Negative); KETONES,URINE TRACE (Negative); LEUKOCYTE ESTERASE,URINE NEGATIVE (Negative); NITRITE,URINE NEGATIVE (Negative); OCCULT BLOOD,URINE NEGATIVE (Negative); PH,URINE 5.5 (5.0-8.0); PROTEIN,URINE 3+ (Negative); UROBILINOGEN,URINE 0.2 (0.2-1.0)
[2024-03-28 18:38] LABS: BACTERIA,URINE MANY /hpf (FEW); MUCUS,URINE FEW /hpf (FEW); RBC,URINE 0-5 /hpf (0-5); SQUAMOUS EPITHELIAL CELLS,UR 0-5 /hpf (0-5)
[2024-03-28] MEDS: hydrALAZINE 20 MG/ML SDV IVPUSH ONE (18:43)
[2024-03-28] MEDS ORDERED: Acetaminophen 325 MG Tab PO PRN (20:05)
[2024-03-28] MEDS ORDERED: Calcitriol 0.25 MCG Cap PO SCH (20:30)
[2024-03-28] MEDS: Levofloxacin/Dextrose 5%-Water 750 MG in Premix Bag 1 BAG IV ONE (20:52)
[2024-03-28 21:36] LABS: BASE EXCESS ARTERIAL 2.1 (-2-2.0); BICARBONATE,ARTERIAL 26.4 meq/L (22.0-26.0); O2 SATURATION ARTERIAL 92.2 % (96.0-97.0)
[2024-03-28] MEDS: Albuterol/Ipratropium 3.0-0.5 MG/3 ML Neb Soln NEB SCH (21:40)
[2024-03-28] MEDS: Gabapentin 100 MG Cap PO SCH (21:55)
[2024-03-28] MEDS: atorvaSTATin 20 MG Tab PO SCH (21:56)
[2024-03-28] MEDS: Carvedilol 3.125 MG Tab PO SCH (21:57)
[2024-03-29 00:57] LABS: INR 1.18; PROTHROMBIN TIME 12.4 SECONDS (9.7-12.0)
[2024-03-29] MEDS: LORazepam 2 MG/ML SDV IVPUSH PRN (02:15)
[2024-03-29 04:34] LABS: BASOPHILS PERCENT AUTO 0.2 % (0.0-1.0); EOSINOPHILS PERCENT AUTO 0.2 % (0.0-6.0); HEMATOCRIT 34.9 % (37.0-47.0); HEMOGLOBIN 11.1 gm/dl (12.0-16.0); IMMATURE GRAN ABSOLUTE AUTO 0.08 K/mm3 (0.00-0.05); IMMATURE GRAN PERCENT AUTO 1.3 % (0.0-0.4); LYMPHOCYTES ABSOLUTE AUTO 0.6 K/mm3 (1.0-4.8); LYMPHOCYTES PERCENT AUTO 9.2 % (24.0-44.0); MEAN CORPUSCULAR HEMOGLOBIN 30.5 pg (28.0-32.0); MEAN CORPUSCULAR HGB CONC 31.8 g/dl (32.0-36.0); MEAN CORPUSCULAR VOLUME 95.9 fl (83.0-99.0); MEAN PLATELET VOLUME 9.4 fl (9.4-12.3); MONOCYTES ABSOLUTE AUTO 0.4 K/mm3 (0.0-0.8); MONOCYTES PERCENT AUTO 5.5 % (0.0-8.0); NEUTROPHILS ABSOLUTE AUTO 5.3 K/mm3 (1.8-7.7); NEUTROPHILS PERCENT AUTO 83.6 % (41.0-71.0); PLATELET COUNT,PLT 297 K/mm3 (150-400); RED BLOOD CELL COUNT 3.64 M/mm3 (4.10-5.30); WHITE BLOOD CELL COUNT,WBC 6.31 K/mm3 (3.9-11.3)
[2024-03-29] MEDS: Non-Formulary Medication 1 Each (Simvastatin 20 MG Tablet) PO SCH (04:49)
[2024-03-29 05:16] LABS: A/G RATIO 0.6 (1-2); ALBUMIN 2.4 g/dl (3.4-5.0); ANION GAP 15.2 (5-15); BILIRUBIN TOTAL 0.5 mg/dL (0.2-1.0); BUN/CREATININE RATIO 16.2 (14-18); C-REACTIVE PROTEIN 1.27 mg/dL (<0.30); CALCIUM 8.6 mg/dL (8.5-10.1); CREATININE 2.6 mg/dL (0.55-1.02); EST CRCL DRUG DOSING (CG) 13.02 mL/min; POTASSIUM,K 4.2 mEq/L (3.5-5.1); PROTEIN TOTAL,TP 6.4 g/dl (6.4-8.2)
[2024-03-29] MEDS ORDERED: 50% Dextrose in Water 50 ML Syringe IVPUSH PRN (05:41)
[2024-03-29] MEDS: Bumetanide 1 MG Tab PO SCH (07:46)
[2024-03-29] MEDS: Heparin Sodium 5,000 Units/ML Vial IVPUSH ONE (08:14)
[2024-03-29] MEDS: Insulin Lispro 100 Unit/ML 3 ML KwikPen SUBCUT SCH (08:15)
[2024-03-29] MEDS: Gabapentin 100 MG Cap PO SCH (08:16)
[2024-03-29] MEDS: Aspirin 81 MG Tab.EC PO SCH (08:17)
[2024-03-29] MEDS: Clopidogrel 75 MG Tab PO SCH (08:17)
[2024-03-29] MEDS: Calcitriol 0.25 MCG Cap PO SCH (08:17)
[2024-03-29] MEDS: Nicotine 21 MG/24 Hr Patch TRDERM SCH (13:38)
[2024-03-29] MEDS: Losartan 25 MG Tab PO SCH (13:39)
[2024-03-29] MEDS: atorvaSTATin 40 MG Tab PO SCH (21:25)
[2024-03-29] MEDS: Morphine 2 MG/ML SYRINGE IVPUSH PRN (21:54)
[2024-03-29] MEDS: Carvedilol 6.25 MG Tab PO SCH (21:59)
[2024-03-30 04:37] LABS: EOSINOPHILS ABSOLUTE AUTO 0.1 K/mm3 (0.0-0.4); EOSINOPHILS PERCENT AUTO 0.5 % (0.0-6.0); HEMATOCRIT 33.7 % (37.0-47.0); HEMOGLOBIN 10.7 gm/dl (12.0-16.0); IMMATURE GRAN ABSOLUTE AUTO 0.05 K/mm3 (0.00-0.05); IMMATURE GRAN PERCENT AUTO 0.4 % (0.0-0.4); LYMPHOCYTES ABSOLUTE AUTO 1.1 K/mm3 (1.0-4.8); LYMPHOCYTES PERCENT AUTO 9.5 % (24.0-44.0); MEAN CORPUSCULAR HGB CONC 31.8 g/dl (32.0-36.0); MEAN CORPUSCULAR VOLUME 94.4 fl (83.0-99.0); MEAN PLATELET VOLUME 9.5 fl (9.4-12.3); MONOCYTES ABSOLUTE AUTO 0.7 K/mm3 (0.0-0.8); MONOCYTES PERCENT AUTO 6.4 % (0.0-8.0); NEUTROPHILS ABSOLUTE AUTO 9.7 K/mm3 (1.8-7.7); NEUTROPHILS PERCENT AUTO 83.2 % (41.0-71.0); PLATELET COUNT,PLT 309 K/mm3 (150-400); RED BLOOD CELL COUNT 3.57 M/mm3 (4.10-5.30); WHITE BLOOD CELL COUNT,WBC 11.63 K/mm3 (3.9-11.3)
[2024-03-30 05:30] LABS: A/G RATIO 0.7 (1-2); ALBUMIN 2.5 g/dl (3.4-5.0); BILIRUBIN TOTAL 0.4 mg/dL (0.2-1.0); BUN/CREATININE RATIO 18.6 (14-18); C-REACTIVE PROTEIN 0.57 mg/dL (<0.30); CALCIUM 8.4 mg/dL (8.5-10.1); CREATININE 2.8 mg/dL (0.55-1.02); EST CRCL DRUG DOSING (CG) 13.92 mL/min; PROTEIN TOTAL,TP 6.2 g/dl (6.4-8.2)
[2024-03-30] MEDS: Heparin Sodium 5,000 Units/ML Vial IVPUSH ONE (05:50)
[2024-03-30] MEDS ORDERED: Spironolactone 25 MG Tab PO SCH (09:00)
[2024-03-30 09:04] LABS: HEMATOCRIT 35.8 % (37.0-47.0); HEMOGLOBIN 11.4 gm/dl (12.0-16.0); MEAN CORPUSCULAR HEMOGLOBIN 30.3 pg (28.0-32.0); MEAN CORPUSCULAR HGB CONC 31.8 g/dl (32.0-36.0); MEAN CORPUSCULAR VOLUME 95.2 fl (83.0-99.0); MEAN PLATELET VOLUME 9.3 fl (9.4-12.3); PLATELET COUNT,PLT 333 K/mm3 (150-400); RED BLOOD CELL COUNT 3.76 M/mm3 (4.10-5.30); WHITE BLOOD CELL COUNT,WBC 12.31 K/mm3 (3.9-11.3)
[2024-03-30] MEDS: Empagliflozin 25 MG Tab PO SCH (11:00)
[2024-03-30] MEDS: Sodium Chloride 0.9% 1,000 ML IV SCH (11:38)
[2024-03-30] MEDS: Levofloxacin/Dextrose 5%-Water 500 MG in Premix Bag 1 BAG IV SCH (20:56)
[2024-03-30] MEDS: Dorzolamide 2% Ophth Soln 10 ML Bottle EYEBOTH SCH (21:01)
[2024-03-30] MEDS: Timolol Maleate 0.5% Ophth Soln 5 ML Bottle EYEBOTH SCH (21:02)
[2024-03-30] MEDS: Latanoprost 0.005% Ophth Soln 2.5 ML Bottle EYEBOTH SCH (21:03)
[2024-03-30] MEDS: atorvaSTATin 40 MG Tab PO SCH (22:01)
[2024-03-30] MEDS: Albuterol/Ipratropium 3.0-0.5 MG/3 ML Neb Soln NEB PRN (23:06)
[2024-03-31 04:48] LABS: BASOPHILS PERCENT AUTO 0.1 % (0.0-1.0); EOSINOPHILS PERCENT AUTO 0.1 % (0.0-6.0); HEMATOCRIT 34.1 % (37.0-47.0); IMMATURE GRAN ABSOLUTE AUTO 0.06 K/mm3 (0.00-0.05); IMMATURE GRAN PERCENT AUTO 0.6 % (0.0-0.4); LYMPHOCYTES ABSOLUTE AUTO 1.1 K/mm3 (1.0-4.8); LYMPHOCYTES PERCENT AUTO 10.3 % (24.0-44.0); MEAN CORPUSCULAR HEMOGLOBIN 30.6 pg (28.0-32.0); MEAN CORPUSCULAR HGB CONC 32.3 g/dl (32.0-36.0); MEAN CORPUSCULAR VOLUME 94.7 fl (83.0-99.0); MEAN PLATELET VOLUME 10.1 fl (9.4-12.3); MONOCYTES ABSOLUTE AUTO 0.9 K/mm3 (0.0-0.8); MONOCYTES PERCENT AUTO 8.5 % (0.0-8.0); NEUTROPHILS ABSOLUTE AUTO 8.6 K/mm3 (1.8-7.7); NEUTROPHILS PERCENT AUTO 80.4 % (41.0-71.0); PLATELET COUNT,PLT 334 K/mm3 (150-400); WHITE BLOOD CELL COUNT,WBC 10.66 K/mm3 (3.9-11.3)
[2024-03-31 05:32] LABS: A/G RATIO 0.7 (1-2); ALBUMIN 2.4 g/dl (3.4-5.0); BILIRUBIN TOTAL 0.4 mg/dL (0.2-1.0); CALCIUM 8.2 mg/dL (8.5-10.1); CREATININE 2.8 mg/dL (0.55-1.02); EST CRCL DRUG DOSING (CG) 13.92 mL/min
[2024-03-31 06:21] LABS: ANION GAP 12.5 (5-15)
[2024-03-31 06:33] LABS: POTASSIUM,K 4.5 mEq/L (3.5-5.1)
[2024-03-31 08:05] VITALS: BP 152/86
[2024-03-31 08:29] VITALS: PULSE 72
[2024-03-31] MEDS: Heparin Sodium 5,000 Units/ML Vial SUBCUT SCH (11:52)
== END 2024-03-31 16:13 | disposition home or self-care (01) | DRG 280 ==
LOC: JD.ED 06:05 → JD.MS 20:05
PROVIDERS: ADMIT Family Medicine; ATTEND Internal Medicine
DX: I21.9 Acute myocardial infarction, unspecified (principal); I11.0 Hypertensive heart disease with heart failure; I50.9 Heart failure, unspecified; I21.4 Non-ST elevation (NSTEMI) myocardial infarction; E11.9 Type 2 diabetes mellitus without complications; J18.9 Pneumonia, unspecified organism; J96.21 Acute and chronic respiratory failure with hypoxia; D84.9 Immunodeficiency, unspecified; I13.0 Hypertensive heart and chronic kidney disease with heart failure and stage 1 through stage 4 chronic kidney disease, or unspecified chronic kidney disease; N18.4 Chronic kidney disease, stage 4 (severe); I50.22 Chronic systolic (congestive) heart failure; Z68.35 Body mass index [BMI] 35.0-35.9, adult; J98.11 Atelectasis; J44.0 Chronic obstructive pulmonary disease with (acute) lower respiratory infection; H54.7 Unspecified visual loss; H40.9 Unspecified glaucoma; H26.9 Unspecified cataract; K52.9 Noninfective gastroenteritis and colitis, unspecified; E66.9 Obesity, unspecified; E11.22 Type 2 diabetes mellitus with diabetic chronic kidney disease; F17.210 Nicotine dependence, cigarettes, uncomplicated; F15.90 Other stimulant use, unspecified, uncomplicated; E11.65 Type 2 diabetes mellitus with hyperglycemia; E78.5 Hyperlipidemia, unspecified; Z66 Do not resuscitate; S20.211A Contusion of right front wall of thorax, initial encounter; Z88.0 Allergy status to penicillin; Z88.2 Allergy status to sulfonamides; Z88.8 Allergy status to other drugs, medicaments and biological substances; Z79.82 Long term (current) use of aspirin; Z79.51 Long term (current) use of inhaled steroids; Z79.899 Other long term (current) drug therapy; Z79.02 Long term (current) use of antithrombotics/antiplatelets; Z87.442 Personal history of urinary calculi; Z79.60 Long term (current) use of unspecified immunomodulators and immunosuppressants; Z85.3 Personal history of malignant neoplasm of breast; Z98.49 Cataract extraction status, unspecified eye; Z90.49 Acquired absence of other specified parts of digestive tract; Z98.890 Other specified postprocedural states; Z90.10 Acquired absence of unspecified breast and nipple; Z68.29 Body mass index [BMI] 29.0-29.9, adult
CPT/HCPCS: 36415; 71045; 80053; 81001; 83735; 83880; 84484 ×3; 85025; 93005 ×3; 93306; 94640 ×2; 96374; 96375; 96376; 99285; A9270 ×3; C1758; J0360 ×2; J1644 ×2; J2060 ×2; J2270; J2919; J3490; 36600; 51798; 82803; 82947; 85027; 85610; 85730; 86140; 93010; 94760; 94761; 97116-GP; 97161-GP; 97530-GP; 99223; 99233; J1815; J1956; J7030; J7620-GY

== ENCOUNTER 2024-05-17 10:07 | Emergency (ER) | payer MEDICARE, BC ==
[2024-05-17 10:54] LABS: BASOPHILS ABSOLUTE AUTO 0.1 K/mm3 (0.0-0.2); BASOPHILS PERCENT AUTO 0.4 % (0.0-1.0); EOSINOPHILS ABSOLUTE AUTO 0.2 K/mm3 (0.0-0.4); EOSINOPHILS PERCENT AUTO 1.3 % (0.0-6.0); HEMATOCRIT 29.7 % (37.0-47.0); IMMATURE GRAN ABSOLUTE AUTO 0.09 K/mm3 (0.00-0.05); IMMATURE GRAN PERCENT AUTO 0.6 % (0.0-0.4); LYMPHOCYTES ABSOLUTE AUTO 1.4 K/mm3 (1.0-4.8); LYMPHOCYTES PERCENT AUTO 9.4 % (24.0-44.0); MEAN CORPUSCULAR HEMOGLOBIN 31.3 pg (28.0-32.0); MEAN CORPUSCULAR HGB CONC 31.6 g/dl (32.0-36.0); MEAN PLATELET VOLUME 9.6 fl (9.4-12.3); MONOCYTES ABSOLUTE AUTO 1.2 K/mm3 (0.0-0.8); MONOCYTES PERCENT AUTO 7.7 % (0.0-8.0); NEUTROPHILS ABSOLUTE AUTO 12.1 K/mm3 (1.8-7.7); NEUTROPHILS PERCENT AUTO 80.6 % (41.0-71.0); PLATELET COUNT,PLT 385 K/mm3 (150-400)
[2024-05-17 10:55] LABS: HEMOGLOBIN 9.4 gm/dl (12.0-16.0)
[2024-05-17 11:07] LABS: A/G RATIO 0.7 (1-2); ALBUMIN 2.9 g/dl (3.4-5.0); ANION GAP 10.3 (5-15); BILIRUBIN TOTAL 0.3 mg/dL (0.2-1.0); BUN/CREATININE RATIO 23.2 (14-18); CALCIUM 9.8 mg/dL (8.5-10.1); CREATININE 3.1 mg/dL (0.55-1.02); EST CRCL DRUG DOSING (CG) 12.02 mL/min; MAGNESIUM 2.3 mg/dL (1.8-2.4); PROTEIN TOTAL,TP 7.3 g/dl (6.4-8.2)
[2024-05-17 11:09] LABS: POTASSIUM,K 4.3 mEq/L (3.5-5.1)
[2024-05-17 12:46] LABS: APPEARANCE,URINE CLEAR (Clear); BILIRUBIN,URINE NEGATIVE (Negative); COLOR,URINE YELLOW (Yellow); GLUCOSE,URINE TRACE (Negative); KETONES,URINE NEGATIVE (Negative); LEUKOCYTE ESTERASE,URINE 1+ (Negative); NITRITE,URINE NEGATIVE (Negative); OCCULT BLOOD,URINE NEGATIVE (Negative); PROTEIN,URINE 2+ (Negative); UROBILINOGEN,URINE 0.2 (0.2-1.0)
[2024-05-17 12:52] LABS: BACTERIA,URINE MANY /hpf (FEW); MUCUS,URINE FEW /hpf (FEW); RBC,URINE 0-5 /hpf (0-5); SQUAMOUS EPITHELIAL CELLS,UR 0-5 /hpf (0-5)
[2024-05-17] MEDS: cefTRIAXone 1 GM Vial IVPUSH ONE (13:47)
[2024-05-17 15:03] VITALS: BP 187/50; PULSE 57
== END 2024-05-17 13:52 | disposition home or self-care (01) ==
LOC: JD.ED 10:07
DX: S32.2XXA Fracture of coccyx, initial encounter for closed fracture (principal); N30.00 Acute cystitis without hematuria; I11.0 Hypertensive heart disease with heart failure; I50.9 Heart failure, unspecified; J44.9 Chronic obstructive pulmonary disease, unspecified; E11.9 Type 2 diabetes mellitus without complications; E66.9 Obesity, unspecified; Z90.49 Acquired absence of other specified parts of digestive tract; Z79.82 Long term (current) use of aspirin; Z79.899 Other long term (current) drug therapy; Z79.891 Long term (current) use of opiate analgesic; Z79.1 Long term (current) use of non-steroidal anti-inflammatories (NSAID); Z79.84 Long term (current) use of oral hypoglycemic drugs; Z88.0 Allergy status to penicillin; Z88.2 Allergy status to sulfonamides; Z88.8 Allergy status to other drugs, medicaments and biological substances; Z68.29 Body mass index [BMI] 29.0-29.9, adult; W19.XXXA Unspecified fall, initial encounter
CPT/HCPCS: 36415; 70450; 71045; 72192; 80053; 81001; 82947; 83605; 83735; 84484; 85025; 87086; 87428; 96374; 99285; J0696; 99284

== ENCOUNTER 2024-07-02 11:57 | Inpatient (IN) | payer MEDICARE, BC ==
[2024-07-02] MEDS ORDERED: Sodium Chloride 0.9% 10 ML Syringe FLUSH PRN (13:03)
[2024-07-02 13:46] LABS: HEMATOCRIT 33.4 % (37.0-47.0); HEMOGLOBIN 10.5 gm/dl (12.0-16.0); MEAN CORPUSCULAR HEMOGLOBIN 32.2 pg (28.0-32.0); MEAN CORPUSCULAR HGB CONC 31.4 g/dl (32.0-36.0); MEAN PLATELET VOLUME 8.7 fl (9.4-12.3); RED BLOOD CELL COUNT 3.26 M/mm3 (4.10-5.30); WHITE BLOOD CELL COUNT,WBC 13.14 K/mm3 (3.9-11.3)
[2024-07-02 14:02] LABS: MEAN CORPUSCULAR VOLUME 102.5 fl (83.0-99.0); PLATELET COUNT,PLT 505 K/mm3 (150-400)
[2024-07-02 14:09] LABS: LACTIC ACID 1.1 mmol/L (0.4-2.0)
[2024-07-02] MEDS: cefTRIAXone 2 GM Vial IVPUSH ONE (14:17)
[2024-07-02] MEDS: Azithromycin 500 MG in Sodium Chloride 0.9% 250 ML IV ONE (14:18)
[2024-07-02 14:43] LABS: A/G RATIO 0.6 (1-2); ALBUMIN 2.5 g/dl (3.4-5.0); ANION GAP 13.7 (5-15); BILIRUBIN TOTAL 0.3 mg/dL (0.2-1.0); BUN/CREATININE RATIO 13.3 (14-18); C-REACTIVE PROTEIN 1.32 mg/dL (<0.30); CALCIUM 9.5 mg/dL (8.5-10.1); CREATININE 2.7 mg/dL (0.55-1.02); EST CRCL DRUG DOSING (CG) 13.8 mL/min; POTASSIUM,K 4.7 mEq/L (3.5-5.1); PROTEIN TOTAL,TP 6.6 g/dl (6.4-8.2)
[2024-07-02 14:57] LABS: INR 1.05; PROTHROMBIN TIME 11.1 SECONDS (9.7-12.0)
[2024-07-02 15:32] LABS: BAND PERCENT MAN 1 % (0-10); BASOPHILS PERCENT MAN 1 (0.1-1.2); EOSINOPHILS PERCENT MAN 1 % (0.7-5.8); LYMPHOCYTES % ATYPICAL MANUAL 0 %; LYMPHOCYTES PERCENT MAN 6 % (20-40); MONOCYTES PERCENT MAN 2 % (2-10)
[2024-07-02 15:45] LABS: ANISOCYTOSIS 1+ SLIGHT
[2024-07-02 15:46] LABS: MICROCYTOSIS 1+ SLIGHT; STOMATOCYTES FEW; TOXIC GRANULATION FEW
[2024-07-02 15:48] LABS: PLATELET COUNT ESTIMATE INCREASED
[2024-07-02] MEDS: Ondansetron 4 MG/2 ML SDV IVPUSH ONE (15:54)
[2024-07-02] MEDS: Metoclopramide 10 MG/2 ML SDV IVPUSH ONE (15:58)
[2024-07-02] MEDS ORDERED: hydrALAZINE 20 MG/ML SDV IVPUSH PRN (18:11)
[2024-07-02] MEDS ORDERED: Labetalol 100 MG/20 ML MDV IVPUSH PRN (18:11)
[2024-07-02] MEDS ORDERED: Ondansetron 4 MG/2 ML SDV IV PRN (18:13)
[2024-07-02] MEDS: Heparin Sodium 5,000 Units/ML Vial SUBCUT SCH (18:43)
[2024-07-02] MEDS: Tiotropium BR/Olodaterol HCL 4 GM Inhalation Spray 2.5mcg/1 dose; 10 doses INH SCH (19:01)
[2024-07-02 20:05] LABS: APPEARANCE,URINE SLT CLOUDY (Clear); BILIRUBIN,URINE NEGATIVE (Negative); COLOR,URINE YELLOW (Yellow); GLUCOSE,URINE 1+ (Negative); KETONES,URINE NEGATIVE (Negative); LEUKOCYTE ESTERASE,URINE 1+ (Negative); NITRITE,URINE NEGATIVE (Negative); OCCULT BLOOD,URINE 1+ (Negative); PROTEIN,URINE 3+ (Negative); UROBILINOGEN,URINE 0.2 (0.2-1.0)
[2024-07-02 20:16] LABS: WBC,URINE TOO NUMEROUS TO CNT /hpf (0-5)
[2024-07-02 20:17] LABS: BACTERIA,URINE MODERATE /hpf (FEW); MUCUS,URINE NOT SEEN /hpf (FEW)
[2024-07-02] MEDS: Gabapentin 100 MG Cap PO ONE (21:22)
[2024-07-02] MEDS: Acetaminophen 325 MG Tab PO PRN (21:22)
[2024-07-02] MEDS: atorvaSTATin 40 MG Tab PO SCH (21:23)
[2024-07-02] MEDS: Famotidine 20 MG/2 ML SDV IVPUSH SCH (21:23)
[2024-07-02] MEDS: Timolol Maleate 0.5% Ophth Soln 5 ML Bottle EYEBOTH SCH (21:23)
[2024-07-02] MEDS: Latanoprost 0.005% Ophth Soln 2.5 ML Bottle EYEBOTH SCH (21:24)
[2024-07-02] MEDS: Dorzolamide 2% Ophth Soln 10 ML Bottle EYEBOTH SCH (21:24)
[2024-07-02] MEDS: Melatonin 3 MG Tab PO PRN (21:40)
[2024-07-02] MEDS: Sodium Chloride 3% Inhalation Soln 4 ML Neb NEB SCH (21:43)
[2024-07-02 23:02] LABS: CORONAVIRUS COVID-19 NAA NEGATIVE (NEGATIVE); INFLUENZA A NAA NEGATIVE (NEGATIVE); RESPIRATORY SYNCYTIAL VIR NAA NEGATIVE (NEGATIVE)
[2024-07-03] MEDS: LORazepam 2 MG/ML SDV IV PRN (02:06)
[2024-07-03] MEDS: Albuterol/Ipratropium 3.0-0.5 MG/3 ML Neb Soln NEB PRN (02:16)
[2024-07-03 06:14] LABS: BASOPHILS ABSOLUTE AUTO 0.1 K/mm3 (0.0-0.2); BASOPHILS PERCENT AUTO 0.8 % (0.0-1.0); EOSINOPHILS ABSOLUTE AUTO 0.2 K/mm3 (0.0-0.4); EOSINOPHILS PERCENT AUTO 1.8 % (0.0-6.0); HEMATOCRIT 30.5 % (37.0-47.0); HEMOGLOBIN 9.4 gm/dl (12.0-16.0); IMMATURE GRAN ABSOLUTE AUTO 0.06 K/mm3 (0.00-0.05); IMMATURE GRAN PERCENT AUTO 0.7 % (0.0-0.4); LYMPHOCYTES ABSOLUTE AUTO 2.1 K/mm3 (1.0-4.8); LYMPHOCYTES PERCENT AUTO 24.3 % (24.0-44.0); MEAN CORPUSCULAR HEMOGLOBIN 32.1 pg (28.0-32.0); MEAN CORPUSCULAR HGB CONC 30.8 g/dl (32.0-36.0); MEAN CORPUSCULAR VOLUME 104.1 fl (83.0-99.0); MEAN PLATELET VOLUME 8.6 fl (9.4-12.3); MONOCYTES ABSOLUTE AUTO 0.7 K/mm3 (0.0-0.8); MONOCYTES PERCENT AUTO 7.7 % (0.0-8.0); NEUTROPHILS ABSOLUTE AUTO 5.7 K/mm3 (1.8-7.7); NEUTROPHILS PERCENT AUTO 64.7 % (41.0-71.0); PLATELET COUNT,PLT 433 K/mm3 (150-400); RED BLOOD CELL COUNT 2.93 M/mm3 (4.10-5.30); WHITE BLOOD CELL COUNT,WBC 8.81 K/mm3 (3.9-11.3)
[2024-07-03] MEDS: Carvedilol 6.25 MG Tab PO SCH (06:43)
[2024-07-03 07:28] LABS: A/G RATIO 0.6 (1-2); ALBUMIN 2.2 g/dl (3.4-5.0); ANION GAP 14.5 (5-15); BILIRUBIN TOTAL 0.3 mg/dL (0.2-1.0); BUN/CREATININE RATIO 11.8 (14-18); C-REACTIVE PROTEIN 0.9 mg/dL (<0.30); CALCIUM 8.9 mg/dL (8.5-10.1); CREATININE 2.8 mg/dL (0.55-1.02); EST CRCL DRUG DOSING (CG) 13.31 mL/min; MAGNESIUM 2.5 mg/dL (1.8-2.4); PHOSPHORUS 5.2 mg/dL (2.6-4.7); POTASSIUM,K 4.5 mEq/L (3.5-5.1)
[2024-07-03 07:36] LABS: FOLIC ACID 46.4 ng/mL (8.6-58.9)
[2024-07-03] MEDS: DULoxetine 20 MG Cap PO SCH (08:00)
[2024-07-03] MEDS: Clopidogrel 75 MG Tab PO SCH (08:00)
[2024-07-03] MEDS ORDERED: Dextrose 5% in Water 1,000 ML IV SCH (08:00)
[2024-07-03] MEDS: Bumetanide 1 MG Tab PO SCH ×2 (08:00→17:34)
[2024-07-03] MEDS: Losartan 25 MG Tab PO SCH (08:00)
[2024-07-03] MEDS: Aspirin 81 MG Tab.EC PO SCH (08:00)
[2024-07-03] MEDS: Gabapentin 100 MG Cap PO SCH (08:09)
[2024-07-03] MEDS: cefTRIAXone 1 GM Vial IVPUSH SCH (08:10)
[2024-07-03] MEDS: cefTRIAXone 1 GM Vial IM SCH (08:15)
[2024-07-03] MEDS: Dextrose 5% in Water 1,000 ML IV SCH (08:49)
[2024-07-03] MEDS: Azithromycin 500 MG in Sodium Chloride 0.9% 250 ML IV SCH (12:33)
[2024-07-03] MEDS: methylPREDNISolone Sodium Succinate 40 MG/1 ML SDV IVPUSH ONE (14:53)
[2024-07-03] MEDS: Calcitriol 0.25 MCG Cap PO SCH (17:34)
[2024-07-03] MEDS: Insulin Lispro 100 Unit/ML 3 ML KwikPen SUBCUT SCH (17:36)
[2024-07-04] MEDS: predniSONE 20 MG Tab PO SCH (06:14)
[2024-07-04 07:49] LABS: BASOPHILS PERCENT AUTO 0.2 % (0.0-1.0); HEMATOCRIT 33.4 % (37.0-47.0); HEMOGLOBIN 10.4 gm/dl (12.0-16.0); IMMATURE GRAN ABSOLUTE AUTO 0.04 K/mm3 (0.00-0.05); IMMATURE GRAN PERCENT AUTO 0.4 % (0.0-0.4); LYMPHOCYTES ABSOLUTE AUTO 0.9 K/mm3 (1.0-4.8); LYMPHOCYTES PERCENT AUTO 9.8 % (24.0-44.0); MEAN CORPUSCULAR HEMOGLOBIN 31.7 pg (28.0-32.0); MEAN CORPUSCULAR HGB CONC 31.1 g/dl (32.0-36.0); MEAN CORPUSCULAR VOLUME 101.8 fl (83.0-99.0); MEAN PLATELET VOLUME 8.9 fl (9.4-12.3); MONOCYTES ABSOLUTE AUTO 0.3 K/mm3 (0.0-0.8); MONOCYTES PERCENT AUTO 2.8 % (0.0-8.0); NEUTROPHILS ABSOLUTE AUTO 7.8 K/mm3 (1.8-7.7); NEUTROPHILS PERCENT AUTO 86.8 % (41.0-71.0); PLATELET COUNT,PLT 470 K/mm3 (150-400); RED BLOOD CELL COUNT 3.28 M/mm3 (4.10-5.30); WHITE BLOOD CELL COUNT,WBC 8.99 K/mm3 (3.9-11.3)
[2024-07-04] MEDS: Spironolactone 25 MG Tab PO SCH (08:01)
[2024-07-04 08:17] LABS: A/G RATIO 0.7 (1-2); ALBUMIN 2.7 g/dl (3.4-5.0); ANION GAP 12.2 (5-15); BILIRUBIN TOTAL 0.3 mg/dL (0.2-1.0); BUN/CREATININE RATIO 11.7 (14-18); CALCIUM 8.9 mg/dL (8.5-10.1); EST CRCL DRUG DOSING (CG) 12.42 mL/min; POTASSIUM,K 5.2 mEq/L (3.5-5.1); PROTEIN TOTAL,TP 6.8 g/dl (6.4-8.2)
[2024-07-04] MEDS: Loperamide 2 MG Cap PO PRN (09:38)
[2024-07-04] MEDS: Clopidogrel 75 MG Tab PO SCH (13:59)
[2024-07-04] MEDS: Dapagliflozin Propanediol [Farxiga] 10 MG Tablet *PT OWN MED PO ONE (17:23)
[2024-07-04] MEDS: Nicotine Polacrilex 2 MG Gum CHEW PRN (18:08)
[2024-07-05 05:35] LABS: A/G RATIO 0.7 (1-2); ALBUMIN 2.5 g/dl (3.4-5.0); ANION GAP 12.9 (5-15); BASOPHILS PERCENT AUTO 0.1 % (0.0-1.0); BILIRUBIN TOTAL 0.2 mg/dL (0.2-1.0); BUN/CREATININE RATIO 12.7 (14-18); CALCIUM 8.7 mg/dL (8.5-10.1); EST CRCL DRUG DOSING (CG) 12.42 mL/min; HEMATOCRIT 29.2 % (37.0-47.0); HEMOGLOBIN 9.4 gm/dl (12.0-16.0); IMMATURE GRAN ABSOLUTE AUTO 0.07 K/mm3 (0.00-0.05); IMMATURE GRAN PERCENT AUTO 0.5 % (0.0-0.4); LYMPHOCYTES ABSOLUTE AUTO 1.3 K/mm3 (1.0-4.8); LYMPHOCYTES PERCENT AUTO 9.9 % (24.0-44.0); MEAN CORPUSCULAR HEMOGLOBIN 32.1 pg (28.0-32.0); MEAN CORPUSCULAR HGB CONC 32.2 g/dl (32.0-36.0); MEAN CORPUSCULAR VOLUME 99.7 fl (83.0-99.0); MEAN PLATELET VOLUME 9.2 fl (9.4-12.3); MONOCYTES ABSOLUTE AUTO 0.6 K/mm3 (0.0-0.8); MONOCYTES PERCENT AUTO 4.9 % (0.0-8.0); NEUTROPHILS ABSOLUTE AUTO 11.1 K/mm3 (1.8-7.7); NEUTROPHILS PERCENT AUTO 84.6 % (41.0-71.0); PLATELET COUNT,PLT 446 K/mm3 (150-400); POTASSIUM,K 4.9 mEq/L (3.5-5.1); PROTEIN TOTAL,TP 6.3 g/dl (6.4-8.2); RED BLOOD CELL COUNT 2.93 M/mm3 (4.10-5.30); WHITE BLOOD CELL COUNT,WBC 13.11 K/mm3 (3.9-11.3)
[2024-07-05 07:50] VITALS: PULSE 62
[2024-07-05] MEDS: Dapagliflozin Propanediol [Farxiga] 10 MG Tablet *PT OWN MED PO SCH (09:18)
[2024-07-05 09:32] VITALS: BP 160/94
== END 2024-07-05 10:09 | disposition home or self-care (01) | DRG 871 ==
LOC: JD.ED 11:57 → JD.MS 14:52
PROVIDERS: ADMIT Student in an Organized Health Care Education/Training Program; ATTEND Family Medicine
DX: J18.9 Pneumonia, unspecified organism (principal); A41.9 Sepsis, unspecified organism; J15.9 Unspecified bacterial pneumonia; J96.01 Acute respiratory failure with hypoxia; J44.0 Chronic obstructive pulmonary disease with (acute) lower respiratory infection; J44.1 Chronic obstructive pulmonary disease with (acute) exacerbation; I13.0 Hypertensive heart and chronic kidney disease with heart failure and stage 1 through stage 4 chronic kidney disease, or unspecified chronic kidney disease; D84.9 Immunodeficiency, unspecified; N18.4 Chronic kidney disease, stage 4 (severe); R65.20 Severe sepsis without septic shock; Z66 Do not resuscitate; Z90.49 Acquired absence of other specified parts of digestive tract; F17.210 Nicotine dependence, cigarettes, uncomplicated; H26.9 Unspecified cataract; H40.9 Unspecified glaucoma; H54.7 Unspecified visual loss; K52.9 Noninfective gastroenteritis and colitis, unspecified; E11.22 Type 2 diabetes mellitus with diabetic chronic kidney disease; E66.9 Obesity, unspecified; F15.90 Other stimulant use, unspecified, uncomplicated; D53.9 Nutritional anemia, unspecified; I50.9 Heart failure, unspecified; G62.9 Polyneuropathy, unspecified; R05.1 Acute cough; R53.1 Weakness; J44.9 Chronic obstructive pulmonary disease, unspecified; Z88.0 Allergy status to penicillin; Z99.81 Dependence on supplemental oxygen; Z88.8 Allergy status to other drugs, medicaments and biological substances; Z79.60 Long term (current) use of unspecified immunomodulators and immunosuppressants; Z88.2 Allergy status to sulfonamides; Z79.82 Long term (current) use of aspirin; Z79.51 Long term (current) use of inhaled steroids; Z79.02 Long term (current) use of antithrombotics/antiplatelets; Z79.1 Long term (current) use of non-steroidal anti-inflammatories (NSAID); Z79.899 Other long term (current) drug therapy; Z86.718 Personal history of other venous thrombosis and embolism; Z87.440 Personal history of urinary (tract) infections; Z98.49 Cataract extraction status, unspecified eye; Z98.890 Other specified postprocedural states; Z90.10 Acquired absence of unspecified breast and nipple; Z71.6 Tobacco abuse counseling; Z85.3 Personal history of malignant neoplasm of breast; I25.2 Old myocardial infarction; Z68.29 Body mass index [BMI] 29.0-29.9, adult
CPT/HCPCS: 0241U; 36415; 71046; 80053; 81001; 82607; 82746; 82947; 83605; 83735; 83880; 84100; 85007; 85025; 85027; 85610; 86140; 86738; 87040; 87086; 87154; 87641; 93005; 94640; 94667; 94668; 94761; 96365; 96375; 97110; 97116; 97162; 97530; 99285; 87077; 93010; 99223; 99232; 99233; 99239; 99283; A9270-GY; J0456; J0696; J1644; J1815; J2060; J2405; J2919; J3490; J7070; J7512

== ENCOUNTER 2024-08-01 11:11 | Emergency (ER) | payer MEDICARE, BC ==
[2024-08-01 12:09] LABS: BASOPHILS ABSOLUTE AUTO 0.1 K/mm3 (0.0-0.2); BASOPHILS PERCENT AUTO 0.5 % (0.0-1.0); EOSINOPHILS ABSOLUTE AUTO 0.3 K/mm3 (0.0-0.4); EOSINOPHILS PERCENT AUTO 3.2 % (0.0-6.0); HEMATOCRIT 31.3 % (37.0-47.0); HEMOGLOBIN 9.6 gm/dl (12.0-16.0); IMMATURE GRAN ABSOLUTE AUTO 0.03 K/mm3 (0.00-0.05); IMMATURE GRAN PERCENT AUTO 0.3 % (0.0-0.4); LYMPHOCYTES ABSOLUTE AUTO 1.4 K/mm3 (1.0-4.8); LYMPHOCYTES PERCENT AUTO 14.9 % (24.0-44.0); MEAN CORPUSCULAR HEMOGLOBIN 31.9 pg (28.0-32.0); MEAN CORPUSCULAR HGB CONC 30.7 g/dl (32.0-36.0); MEAN PLATELET VOLUME 9.6 fl (9.4-12.3); MONOCYTES ABSOLUTE AUTO 0.7 K/mm3 (0.0-0.8); MONOCYTES PERCENT AUTO 7.5 % (0.0-8.0); NEUTROPHILS ABSOLUTE AUTO 6.7 K/mm3 (1.8-7.7); NEUTROPHILS PERCENT AUTO 73.6 % (41.0-71.0); RED BLOOD CELL COUNT 3.01 M/mm3 (4.10-5.30)
[2024-08-01 12:14] LABS: PLATELET COUNT,PLT 344 K/mm3 (150-400)
[2024-08-01] MEDS: Acetaminophen 325 MG Tab PO ONE (12:45)
[2024-08-01 12:52] LABS: A/G RATIO 0.9 (1-2); ANION GAP 9.1 (5-15); BILIRUBIN TOTAL 0.3 mg/dL (0.2-1.0); BUN/CREATININE RATIO 15.2 (14-18); CREATININE 3.3 mg/dL (0.55-1.02); EST CRCL DRUG DOSING (CG) 12.33 mL/min; POTASSIUM,K 5.1 mEq/L (3.5-5.1); PROTEIN TOTAL,TP 6.5 g/dl (6.4-8.2)
[2024-08-01 12:53] VITALS: BP 156/46; PULSE 56
[2024-08-01 13:12] LABS: CALCIUM 10.6 mg/dL (8.5-10.1)
== END 2024-08-01 13:38 | disposition home or self-care (01) ==
LOC: JD.ED 11:11
DX: T50.2X1A Poisoning by carbonic-anhydrase inhibitors, benzothiadiazides and other diuretics, accidental (unintentional), initial encounter (principal); T46.6X1A Poisoning by antihyperlipidemic and antiarteriosclerotic drugs, accidental (unintentional), initial encounter; T38.1X1A Poisoning by thyroid hormones and substitutes, accidental (unintentional), initial encounter; I11.0 Hypertensive heart disease with heart failure; I50.9 Heart failure, unspecified; J44.9 Chronic obstructive pulmonary disease, unspecified; E11.9 Type 2 diabetes mellitus without complications; F17.200 Nicotine dependence, unspecified, uncomplicated; Z90.49 Acquired absence of other specified parts of digestive tract; Z90.710 Acquired absence of both cervix and uterus; Z88.0 Allergy status to penicillin; Z88.8 Allergy status to other drugs, medicaments and biological substances; Z79.82 Long term (current) use of aspirin; Z79.51 Long term (current) use of inhaled steroids; Z79.899 Other long term (current) drug therapy
CPT/HCPCS: 36415; 80053; 85025; 99284; A9270

== ENCOUNTER 2025-01-31 10:04 | Inpatient (IN) | payer MEDICARE, BC ==
[2025-01-31] MEDS: Sodium Chloride 0.9% 10 ML Syringe FLUSH PRN (10:50)
[2025-01-31 10:59] LABS: BASOPHILS ABSOLUTE AUTO 0.1 K/mm3 (0.0-0.2); BASOPHILS PERCENT AUTO 0.6 % (0.0-1.0); EOSINOPHILS ABSOLUTE AUTO 0.1 K/mm3 (0.0-0.4); EOSINOPHILS PERCENT AUTO 1.1 % (0.0-6.0); IMMATURE GRAN ABSOLUTE AUTO 0.08 K/mm3 (0.00-0.05); IMMATURE GRAN PERCENT AUTO 0.7 % (0.0-0.4); LYMPHOCYTES ABSOLUTE AUTO 0.8 K/mm3 (1.0-4.8); LYMPHOCYTES PERCENT AUTO 7.4 % (24.0-44.0); MEAN PLATELET VOLUME 9.4 fl (9.4-12.3); MONOCYTES ABSOLUTE AUTO 0.5 K/mm3 (0.0-0.8); MONOCYTES PERCENT AUTO 5.0 % (0.0-8.0); NEUTROPHILS ABSOLUTE AUTO 9.2 K/mm3 (1.8-7.7); NEUTROPHILS PERCENT AUTO 85.2 % (41.0-71.0); NRBC ABSOLUTE 0.00 (0.00-0.02); NRBC PERCENT 0.0 % (0.0-0.2); PLATELET COUNT,PLT 303 K/mm3 (150-400); RED BLOOD CELL COUNT 3.45 M/mm3 (4.10-5.30); WHITE BLOOD CELL COUNT,WBC 10.83 K/mm3 (3.9-11.3)
[2025-01-31 11:19] LABS: CORONAVIRUS COVID-19 NAA NEGATIVE (NEGATIVE); INFLUENZA A NAA NEGATIVE (NEGATIVE); RESPIRATORY SYNCYTIAL VIR NAA NEGATIVE (NEGATIVE)
[2025-01-31 11:22] LABS: LACTIC ACID 1.7 mmol/L (0.4-2.0)
[2025-01-31] MEDS: hydrALAZINE 20 MG/ML SDV IVPUSH ONE (11:27)
[2025-01-31 11:28] LABS: A/G RATIO 0.7 (1-2); BILIRUBIN TOTAL 0.6 mg/dL (0.2-1.0); BLOOD UREA NITROGEN,BUN 50.0 mg/dL (7-18); CARBON DIOXIDE,CO2 22.0 mEq/L (21-32); CHLORIDE,CL 114.0 mEq/L (98-107); CREATININE 2.9 mg/dL (0.55-1.02); EST CRCL DRUG DOSING (CG) 12.64 mL/min; ESTIMATED GFR 16.0 mL/min (>60); GLUCOSE RANDOM 139.0 mg/dL (70-99); PROTEIN TOTAL,TP 7.3 g/dl (6.4-8.2); SODIUM,NA 146.0 mEq/L (136-145)
[2025-01-31 11:59] LABS: ALANINE AMINOTRANSFERASE,ALT 7.0 U/L (14-59)
[2025-01-31 12:00] LABS: ASPARTATE AMNIOTRANSFERASE,AST 29.0 U/L (15-37); POTASSIUM,K 6.0 mEq/L (3.5-5.1)
[2025-01-31] MEDS: Bumetanide 1 MG/4 ML MDV IVPUSH ONE (12:04)
[2025-01-31 12:32] LABS: BLOOD UREA NITROGEN,BUN 50.0 mg/dL (7-18); CARBON DIOXIDE,CO2 20.0 mEq/L (21-32); CHLORIDE,CL 116.0 mEq/L (98-107); CREATININE 2.9 mg/dL (0.55-1.02); EST CRCL DRUG DOSING (CG) 12.64 mL/min; ESTIMATED GFR 16.0 mL/min (>60); GLUCOSE RANDOM 135.0 mg/dL (70-99); POTASSIUM,K 5.1 mEq/L (3.5-5.1); SODIUM,NA 148.0 mEq/L (136-145)
[2025-01-31] MEDS ORDERED: Ondansetron 4 MG Tab.DIS PO PRN (13:33)
[2025-01-31] MEDS ORDERED: Ondansetron 4 MG/2 ML SDV IV PRN (13:33)
[2025-01-31] MEDS ORDERED: Non-Formulary Medication 1 Each (Melatonin [Melatonin] 1 MG Tablet) PO PRN (13:39)
[2025-01-31] MEDS ORDERED: Acetaminophen/oxyCODONE 325-5 MG Tab PO PRN (13:39)
[2025-01-31] MEDS ORDERED: 50% Dextrose in Water 50 ML Syringe IVPUSH PRN (13:43)
[2025-01-31] MEDS: Calcium Gluconate 10% 1 GM/10 ML SDV IV STA (14:07)
[2025-01-31] MEDS: Insulin Regular, Human 100 Units/ML 10 ML Vial IV ONE (14:07)
[2025-01-31] MEDS: 50% Dextrose in Water 50 ML Syringe IVPUSH ONE (14:07)
[2025-01-31] MEDS: Insulin Lispro 100 Unit/ML 3 ML KwikPen SUBCUT SCH (17:36)
[2025-01-31] MEDS: Acetaminophen/oxyCODONE 325-5 MG Tab PO PRN (20:34)
[2025-01-31] MEDS ORDERED: ACETAZOLAMIDE 250 MG TAB PO SCH (21:00)
[2025-01-31] MEDS ORDERED: Formoterol/Mometasone 100-5 MCG 8.8 GM Inhaler INH SCH (21:00)
[2025-01-31] MEDS: Formoterol/Mometasone 100-5 MCG 8.8 GM Inhaler INH SCH (21:41)
[2025-02-01 07:24] LABS: BASOPHILS ABSOLUTE AUTO 0.1 K/mm3 (0.0-0.2); BASOPHILS PERCENT AUTO 0.7 % (0.0-1.0); EOSINOPHILS ABSOLUTE AUTO 0.1 K/mm3 (0.0-0.4); EOSINOPHILS PERCENT AUTO 0.9 % (0.0-6.0); IMMATURE GRAN ABSOLUTE AUTO 0.03 K/mm3 (0.00-0.05); IMMATURE GRAN PERCENT AUTO 0.3 % (0.0-0.4); LYMPHOCYTES ABSOLUTE AUTO 1.0 K/mm3 (1.0-4.8); LYMPHOCYTES PERCENT AUTO 9.6 % (24.0-44.0); MEAN PLATELET VOLUME 9.4 fl (9.4-12.3); MONOCYTES ABSOLUTE AUTO 0.7 K/mm3 (0.0-0.8); MONOCYTES PERCENT AUTO 6.8 % (0.0-8.0); NEUTROPHILS ABSOLUTE AUTO 8.1 K/mm3 (1.8-7.7); NEUTROPHILS PERCENT AUTO 81.7 % (41.0-71.0); NRBC ABSOLUTE 0.00 (0.00-0.02); NRBC PERCENT 0.0 % (0.0-0.2); PLATELET COUNT,PLT 307 K/mm3 (150-400); RED BLOOD CELL COUNT 3.03 M/mm3 (4.10-5.30); WHITE BLOOD CELL COUNT,WBC 9.93 K/mm3 (3.9-11.3)
[2025-02-01] MEDS ORDERED: FOLIC ACID 0.4 MG PO SCH ×2 (09:00)
[2025-02-01] MEDS ORDERED: Non-Formulary Medication 1 Each (Magnesium [Magnesium] 200 MG Tablet) PO SCH ×2 (09:00)
[2025-02-01] MEDS ORDERED: Insulin Glargine,Human Rec. Analog 100 Units/ML 3 ML Pen SUBCUT SCH ×2 (09:00)
[2025-02-01 17:10] LABS: BLOOD UREA NITROGEN,BUN 54.0 mg/dL (7-18); CARBON DIOXIDE,CO2 21.0 mEq/L (21-32); CHLORIDE,CL 114.0 mEq/L (98-107); CREATININE 3.0 mg/dL (0.55-1.02); EST CRCL DRUG DOSING (CG) 12.22 mL/min; ESTIMATED GFR 15.0 mL/min (>60); GLUCOSE RANDOM 127.0 mg/dL (70-99); POTASSIUM,K 5.1 mEq/L (3.5-5.1); SODIUM,NA 147.0 mEq/L (136-145)
[2025-02-02 07:38] LABS: BASOPHILS ABSOLUTE AUTO 0.1 K/mm3 (0.0-0.2); BASOPHILS PERCENT AUTO 0.6 % (0.0-1.0); EOSINOPHILS ABSOLUTE AUTO 0.1 K/mm3 (0.0-0.4); EOSINOPHILS PERCENT AUTO 1.1 % (0.0-6.0); IMMATURE GRAN ABSOLUTE AUTO 0.04 K/mm3 (0.00-0.05); IMMATURE GRAN PERCENT AUTO 0.4 % (0.0-0.4); LYMPHOCYTES ABSOLUTE AUTO 0.9 K/mm3 (1.0-4.8); LYMPHOCYTES PERCENT AUTO 8.9 % (24.0-44.0); MEAN PLATELET VOLUME 9.6 fl (9.4-12.3); MONOCYTES ABSOLUTE AUTO 0.7 K/mm3 (0.0-0.8); MONOCYTES PERCENT AUTO 7.2 % (0.0-8.0); NEUTROPHILS ABSOLUTE AUTO 8.4 K/mm3 (1.8-7.7); NEUTROPHILS PERCENT AUTO 81.8 % (41.0-71.0); NRBC ABSOLUTE 0.00 (0.00-0.02); NRBC PERCENT 0.0 % (0.0-0.2); PLATELET COUNT,PLT 304 K/mm3 (150-400); RED BLOOD CELL COUNT 2.85 M/mm3 (4.10-5.30); WHITE BLOOD CELL COUNT,WBC 10.25 K/mm3 (3.9-11.3)
[2025-02-02 08:00] LABS: BLOOD UREA NITROGEN,BUN 55.0 mg/dL (7-18); CARBON DIOXIDE,CO2 20.0 mEq/L (21-32); CHLORIDE,CL 115.0 mEq/L (98-107); CREATININE 3.0 mg/dL (0.55-1.02); EST CRCL DRUG DOSING (CG) 12.22 mL/min; ESTIMATED GFR 15.0 mL/min (>60); GLUCOSE RANDOM 95.0 mg/dL (70-99); POTASSIUM,K 4.6 mEq/L (3.5-5.1); SODIUM,NA 147.0 mEq/L (136-145)
[2025-02-02] MEDS: Formoterol/Mometasone 100-5 MCG 8.8 GM Inhaler INH SCH (08:32)
[2025-02-03 06:52] LABS: BLOOD UREA NITROGEN,BUN 55.0 mg/dL (7-18); CARBON DIOXIDE,CO2 22.0 mEq/L (21-32); CHLORIDE,CL 115.0 mEq/L (98-107); CREATININE 2.8 mg/dL (0.55-1.02); EST CRCL DRUG DOSING (CG) 13.1 mL/min; ESTIMATED GFR 17.0 mL/min (>60); GLUCOSE RANDOM 99.0 mg/dL (70-99); SODIUM,NA 145.0 mEq/L (136-145)
[2025-02-03 06:57] LABS: POTASSIUM,K 4.4 mEq/L (3.5-5.1)
[2025-02-04 06:07] LABS: BLOOD UREA NITROGEN,BUN 54.0 mg/dL (7-18); CARBON DIOXIDE,CO2 20.0 mEq/L (21-32); CHLORIDE,CL 112.0 mEq/L (98-107); CREATININE 2.9 mg/dL (0.55-1.02); EST CRCL DRUG DOSING (CG) 12.64 mL/min; ESTIMATED GFR 16.0 mL/min (>60); GLUCOSE RANDOM 97.0 mg/dL (70-99); POTASSIUM,K 4.4 mEq/L (3.5-5.1); SODIUM,NA 143.0 mEq/L (136-145)
[2025-02-06 06:15] LABS: BLOOD UREA NITROGEN,BUN 64.0 mg/dL (7-18); CARBON DIOXIDE,CO2 20.0 mEq/L (21-32); CREATININE 2.9 mg/dL (0.55-1.02); EST CRCL DRUG DOSING (CG) 12.64 mL/min; ESTIMATED GFR 16.0 mL/min (>60); GLUCOSE RANDOM 113.0 mg/dL (70-99)
[2025-02-06 06:38] LABS: CHLORIDE,CL 111.0 mEq/L (98-107); POTASSIUM,K 4.7 mEq/L (3.5-5.1)
[2025-02-06 06:57] LABS: SODIUM,NA 141.0 mEq/L (136-145)
[2025-02-06] MEDS: cefTRIAXone 1 GM in Water For Injection, Sterile 10 ML IVPUSH SCH (16:41)
[2025-02-07 00:40] LABS: APPEARANCE,URINE SLT CLOUDY (Clear); GLUCOSE,URINE TRACE (Negative); OCCULT BLOOD,URINE 1+ (Negative)
[2025-02-07 01:10] LABS: EPITHELIAL CELLS,URINE 0-5 /hpf (0-5); WBC CLUMPS,URINE MODERATE /hpf (NOT SEEN)
[2025-02-07 06:31] LABS: A/G RATIO 0.7 (1-2); ASPARTATE AMNIOTRANSFERASE,AST 8 U/L (15-37); BILIRUBIN TOTAL 0.3 mg/dL (0.2-1.0); BLOOD UREA NITROGEN,BUN 63 mg/dL (7-18); CARBON DIOXIDE,CO2 20 mEq/L (21-32); CHLORIDE,CL 112 mEq/L (98-107); CREATININE 2.8 mg/dL (0.55-1.02); EST CRCL DRUG DOSING (CG) 13.10 mL/min; ESTIMATED GFR 17 mL/min (>60); GLUCOSE RANDOM 122 mg/dL (70-99); POTASSIUM,K 4.3 mEq/L (3.5-5.1); PROTEIN TOTAL,TP 5.8 g/dl (6.4-8.2); SODIUM,NA 143 mEq/L (136-145)
[2025-02-07 06:51] LABS: ALANINE AMINOTRANSFERASE,ALT < 6 U/L (14-59)
[2025-02-08 05:40] LABS: MEAN PLATELET VOLUME 10.2 fl (9.4-12.3); NRBC ABSOLUTE 0.00 (0.00-0.02); NRBC PERCENT 0.0 % (0.0-0.2); PLATELET COUNT,PLT 231 K/mm3 (150-400); RED BLOOD CELL COUNT 2.64 M/mm3 (4.10-5.30); WHITE BLOOD CELL COUNT,WBC 10.13 K/mm3 (3.9-11.3)
[2025-02-08 05:57] LABS: A/G RATIO 0.6 (1-2); ALANINE AMINOTRANSFERASE,ALT 10.0 U/L (14-59); ASPARTATE AMNIOTRANSFERASE,AST 12.0 U/L (15-37); BILIRUBIN TOTAL 0.3 mg/dL (0.2-1.0); BLOOD UREA NITROGEN,BUN 71.0 mg/dL (7-18); CARBON DIOXIDE,CO2 20.0 mEq/L (21-32); CHLORIDE,CL 113.0 mEq/L (98-107); CREATININE 2.6 mg/dL (0.55-1.02); EST CRCL DRUG DOSING (CG) 14.1 mL/min; ESTIMATED GFR 18.0 mL/min (>60); GLUCOSE RANDOM 115.0 mg/dL (70-99); POTASSIUM,K 4.0 mEq/L (3.5-5.1); PROTEIN TOTAL,TP 5.7 g/dl (6.4-8.2); SODIUM,NA 144.0 mEq/L (136-145)
[2025-02-09 05:51] LABS: MEAN PLATELET VOLUME 10.6 fl (9.4-12.3); NRBC ABSOLUTE 0.00 (0.00-0.02); NRBC PERCENT 0.0 % (0.0-0.2); PLATELET COUNT,PLT 239 K/mm3 (150-400); RED BLOOD CELL COUNT 3.09 M/mm3 (4.10-5.30); WHITE BLOOD CELL COUNT,WBC 10.18 K/mm3 (3.9-11.3)
[2025-02-09 06:05] LABS: A/G RATIO 0.6 (1-2); ALANINE AMINOTRANSFERASE,ALT 14.0 U/L (14-59); ASPARTATE AMNIOTRANSFERASE,AST 15.0 U/L (15-37); BILIRUBIN TOTAL 0.2 mg/dL (0.2-1.0); BLOOD UREA NITROGEN,BUN 68.0 mg/dL (7-18); CARBON DIOXIDE,CO2 22.0 mEq/L (21-32); CHLORIDE,CL 113.0 mEq/L (98-107); CREATININE 2.3 mg/dL (0.55-1.02); EST CRCL DRUG DOSING (CG) 15.94 mL/min; ESTIMATED GFR 21.0 mL/min (>60); GLUCOSE RANDOM 130.0 mg/dL (70-99); POTASSIUM,K 4.2 mEq/L (3.5-5.1); PROTEIN TOTAL,TP 5.9 g/dl (6.4-8.2); SODIUM,NA 147.0 mEq/L (136-145)
[2025-02-10 05:50] LABS: MEAN PLATELET VOLUME 10.6 fl (9.4-12.3); NRBC ABSOLUTE 0.00 (0.00-0.02); NRBC PERCENT 0.0 % (0.0-0.2); PLATELET COUNT,PLT 255 K/mm3 (150-400); RED BLOOD CELL COUNT 2.71 M/mm3 (4.10-5.30); WHITE BLOOD CELL COUNT,WBC 9.45 K/mm3 (3.9-11.3)
[2025-02-10 06:12] LABS: A/G RATIO 0.6 (1-2); ALANINE AMINOTRANSFERASE,ALT 19.0 U/L (14-59); ASPARTATE AMNIOTRANSFERASE,AST 23.0 U/L (15-37); BILIRUBIN TOTAL 0.3 mg/dL (0.2-1.0); BLOOD UREA NITROGEN,BUN 63.0 mg/dL (7-18); CARBON DIOXIDE,CO2 20.0 mEq/L (21-32); CHLORIDE,CL 112.0 mEq/L (98-107); CREATININE 2.2 mg/dL (0.55-1.02); EST CRCL DRUG DOSING (CG) 16.67 mL/min; ESTIMATED GFR 22.0 mL/min (>60); GLUCOSE RANDOM 147.0 mg/dL (70-99); POTASSIUM,K 4.3 mEq/L (3.5-5.1); PROTEIN TOTAL,TP 5.6 g/dl (6.4-8.2); SODIUM,NA 143.0 mEq/L (136-145)
[2025-02-11 06:29] LABS: A/G RATIO 0.6 (1-2); ALANINE AMINOTRANSFERASE,ALT 25.0 U/L (14-59); ASPARTATE AMNIOTRANSFERASE,AST 28.0 U/L (15-37); BILIRUBIN TOTAL 0.3 mg/dL (0.2-1.0); BLOOD UREA NITROGEN,BUN 63.0 mg/dL (7-18); CARBON DIOXIDE,CO2 19.0 mEq/L (21-32); CHLORIDE,CL 113.0 mEq/L (98-107); CREATININE 2.1 mg/dL (0.55-1.02); EST CRCL DRUG DOSING (CG) 17.46 mL/min; ESTIMATED GFR 24.0 mL/min (>60); GLUCOSE RANDOM 118.0 mg/dL (70-99); POTASSIUM,K 4.5 mEq/L (3.5-5.1); PROTEIN TOTAL,TP 5.7 g/dl (6.4-8.2); SODIUM,NA 142.0 mEq/L (136-145)
[2025-02-12 07:04] LABS: A/G RATIO 0.6 (1-2); ALANINE AMINOTRANSFERASE,ALT 25.0 U/L (14-59); ASPARTATE AMNIOTRANSFERASE,AST 20.0 U/L (15-37); BILIRUBIN TOTAL 0.3 mg/dL (0.2-1.0); BLOOD UREA NITROGEN,BUN 62.0 mg/dL (7-18); CARBON DIOXIDE,CO2 19.0 mEq/L (21-32); CHLORIDE,CL 112.0 mEq/L (98-107); CREATININE 2.0 mg/dL (0.55-1.02); EST CRCL DRUG DOSING (CG) 18.33 mL/min; ESTIMATED GFR 25.0 mL/min (>60); GLUCOSE RANDOM 119.0 mg/dL (70-99); POTASSIUM,K 4.6 mEq/L (3.5-5.1); PROTEIN TOTAL,TP 5.8 g/dl (6.4-8.2); SODIUM,NA 143.0 mEq/L (136-145)
[2025-02-12 13:12] VITALS: BP 150/62; PULSE 67
== END 2025-02-12 13:33 | DRG 640 ==
LOC: JD.ED 10:04 → JD.MS 13:33 → OBSVTOIN 02-01 16:30
PROVIDERS: ADMIT Hospitalist; ATTEND Family Medicine
DX: R62.7 Adult failure to thrive (principal); I50.43 Acute on chronic combined systolic (congestive) and diastolic (congestive) heart failure; I13.0 Hypertensive heart and chronic kidney disease with heart failure and stage 1 through stage 4 chronic kidney disease, or unspecified chronic kidney disease; I50.9 Heart failure, unspecified; J41.1 Mucopurulent chronic bronchitis; E87.0 Hyperosmolality and hypernatremia; N17.9 Acute kidney failure, unspecified; N18.4 Chronic kidney disease, stage 4 (severe); N39.0 Urinary tract infection, site not specified; R53.81 Other malaise; Z66 Do not resuscitate; E87.5 Hyperkalemia; E87.8 Other disorders of electrolyte and fluid balance, not elsewhere classified; E11.22 Type 2 diabetes mellitus with diabetic chronic kidney disease; Z68.31 Body mass index [BMI] 31.0-31.9, adult; E66.9 Obesity, unspecified; E78.5 Hyperlipidemia, unspecified; E11.65 Type 2 diabetes mellitus with hyperglycemia; F17.200 Nicotine dependence, unspecified, uncomplicated; H40.9 Unspecified glaucoma; H54.7 Unspecified visual loss; I25.10 Atherosclerotic heart disease of native coronary artery without angina pectoris; B95.2 Enterococcus as the cause of diseases classified elsewhere; E86.0 Dehydration; E11.51 Type 2 diabetes mellitus with diabetic peripheral angiopathy without gangrene; D63.1 Anemia in chronic kidney disease; J44.9 Chronic obstructive pulmonary disease, unspecified; I25.2 Old myocardial infarction; Z88.0 Allergy status to penicillin; Z88.8 Allergy status to other drugs, medicaments and biological substances; Z79.82 Long term (current) use of aspirin; Z79.899 Other long term (current) drug therapy; Z79.52 Long term (current) use of systemic steroids; Z98.49 Cataract extraction status, unspecified eye; Z88.2 Allergy status to sulfonamides; Z79.01 Long term (current) use of anticoagulants; Z86.718 Personal history of other venous thrombosis and embolism; Z68.30 Body mass index [BMI] 30.0-30.9, adult; Z85.3 Personal history of malignant neoplasm of breast; Z98.890 Other specified postprocedural states; Z79.4 Long term (current) use of insulin; Z90.49 Acquired absence of other specified parts of digestive tract; Z90.10 Acquired absence of unspecified breast and nipple
CPT/HCPCS: 36415 ×2; 71045; 80048; 80053; 82947 ×5; 83605; 83735; 83880; 85025 ×2; 86140; 87637; 93005; 94640 ×5; 94761; 96372; 96374; 96375; 97162; 97530 ×2; 99285; A9270 ×18; G0378 ×3; J0360; J1650; 36410; 51701; 51798; 72100; 72100-26; 81001; 85027; 86850; 86900; 86901; 87086; 87088; 87186; 93010; 97110-GP; 97165-GO; 97166-GO; 97535-GO; 99223; 99231; 99232; 99239; C1758; J0696; J1939; J3480; J3490; J7030; J7070; U0002